=== PATIENT | male | born 1945 | race Caucasian/White ===

== ENCOUNTER 2016-08-08 07:47 | Outpatient (CLI) | payer OTHER ==
[~2016-08-08 07:47] MED LIST: ASPIRIN ADULT L81 M1 PO; FISH OIL1000 M1; FLUOXETINE HCL40 MG PO; HYDROCHLOROTHIA25 MG PO; LISINOPRIL10 MG PO; LOVASTATIN40 MG PO; METFORMIN HCL1000 MG PO; MORPHINE SULFAT30 M4 PO; MULTIPLE VITAMIN PO; PERCOCET1 TA4 PO; TOPROL XL50 MG PO; ZOLPIDEM TARTRA10 MG PO
--- NOTE | 2016-08-08 08:52 | DIAGNOSTIC IMAGING REPORT ---
PROCEDURE: CT THORAX WITH CONTRAST INDICATION: LUNG CANCER, follow-up TECHNIQUE: 125 ml of Isovue 300 was injected intravenously and axial images were obtained of the chest with coronal and sagittal reformations. COMPARISON: CT chest 07/01/2016 and 05/03/2016 FINDINGS: Mild progression of right apical opacity which appears to be primarily due to increasing necrosis. Solid component has continued to decrease in size and measures 4.2 x 3.5 cm (previously 4.2 x 4.0 cm). Pleural scarring. Mild scarring of the right lung base. Left lung emphysema. No adenopathy or effusion. Mild atherosclerosis of the thoracic aorta. CABG. Normal heart size. No pericardial effusion. Hepatic steatosis. Cholecystectomy. Small hiatal hernia. Stable right parapelvic cyst. No suspicious osseous lesions. IMPRESSION: 1. Increasing right upper lobe opacity which appears to be primarily due to increasing necrosis. Solid right apical component has decreased in size and measures 4.2 x 3.5 cm (previously 4.2 x 4 cm).
== END 2016-08-08 23:00 ==
LOC: CT SRH 07:47 → LAB SRH 07:47 → CT SRH 09:00
DX: C34.90 Malignant neoplasm of unspecified part of unspecified bronchus or lung (principal)
CPT/HCPCS: 90074; 90100; 91643; 95059

== ENCOUNTER 2016-09-29 10:10 | Outpatient (CLI) | payer OTHER ==
--- NOTE | 2016-09-29 12:17 | DIAGNOSTIC IMAGING REPORT ---
PROCEDURE: CT THORAX ABD PELVIS W/CONT INDICATION: LUNG CA TECHNIQUE: 125 ml of Isovue 300 injected intravenously and axial images were obtained of the entire thorax, abdomen, and pelvis with sagittal and coronal reformations. COMPARISON: Most recent exam from 08/08/2016. FINDINGS: THORAX: Left subclavian Mediport in good position. Post CABG changes in the anterior mediastinum and sternum. There has been interval decrease in the solid component to the posterior medial right upper lobe lung mass with now a small amount of central aeration of this portion of the lung and decreased amount of adjacent necrosis. There is an interval increase in fissural thickening along the posterior aspect of the right major fissure, but a fairly stable amount of perihilar soft tissue. Right hilar lymph nodes have become slightly more prominent. Stable small precarinal and subcarinal lymph nodes are stable in size and extent. There has been interval development of a small right pleural effusion. Fibrotic changes throughout the right lung and moderately severe emphysematous changes throughout the left. No new mass. No new adenopathy in the supraclavicular or axillary regions. Great vessels and heart, stable appearance with heavy coronary artery atherosclerosis. ABDOMEN: Surgically absent gallbladder. 4.3 cm lower pole right parapelvic cyst. 11 mm nonobstructing right lower pole intrarenal calcification. Tiny cortical cystic structures seen elsewhere in each kidney. Normal liver, adrenal glands, pancreas, and spleen. Normal caliber retroperitoneal vessels with moderate aortic atherosclerosis distally. No retroperitoneal adenopathy. The stomach, bowel loops, and mesentery are normal.. PELVIS: Surgically absent prostate gland and seminal vesicles. Indirect left inguinal hernia containing fat and a small knuckle of unobstructed sigmoid colon. Appendix not visible, likely surgically absent. Pelvic bowel loops, distal colon, and rectum appear normal. Distended urinary bladder. No free pelvic fluid. No pelvic adenopathy. Osseous structures demonstrate a dynamic hip screw in the right hip mild degenerative facet endplate changes in the spine. No suspicious osseous lesions.. IMPRESSION: 1. Slight interval decrease in solid component of right upper lobe lung mass. 2. Slight increased prominence of right hilar lymph nodes, but stable appearing mediastinal lymph nodes. 3. Interval development of small right pleural effusion and progressive thickening of the right major fissure. 4. Nonobstructing right lower pole intrarenal calcification measuring 11 mm. 5. Post cholecystectomy and prostatectomy. 6. No evidence of metastatic disease in the abdomen or pelvis. 7. Indirect left inguinal hernia containing fat and sigmoid colon. All CT scans at this facility use dose modulation, iterative reconstruction, and/or weight-based dosing when appropriate to reduce radiation dose to as low as reasonably achievable.
== END 2016-09-29 23:00 ==
LOC: CT SRH 10:10
DX: C34.90 Malignant neoplasm of unspecified part of unspecified bronchus or lung (principal); J90 Pleural effusion, not elsewhere classified; K40.90 Unilateral inguinal hernia, without obstruction or gangrene, not specified as recurrent; Z90.49 Acquired absence of other specified parts of digestive tract; Z85.46 Personal history of malignant neoplasm of prostate

== ENCOUNTER 2016-11-07 10:52 | Outpatient (CLI) | payer OTHER | END 2016-11-07 23:00 | LOC: LAB SRH 10:52 | DX: C34.90 Malignant neoplasm of unspecified part of unspecified bronchus or lung (principal) | CPT/HCPCS: 83498; 91162; 91163 ==

== ENCOUNTER 2016-11-08 17:17 | Inpatient (IN) | payer OTHER ==
[~2016-11-08] VITALS: Ht 180.3 cm; Wt 90.6 kg
--- NOTE | 2016-11-08 18:06 | DIAGNOSTIC IMAGING REPORT ---
PROCEDURE: XR CHEST 2 VIEW INDICATION: SHORTNESS OF BREATH TECHNIQUE: PA and lateral view. COMPARISON: CT chest 09/29/2016 and Chest x-ray 05/19/2016. FINDINGS: Poor inspiration with diffuse increased interstitial markings. New left basilar alveolar infiltrate. Stable right apical opacity. Median sternotomy and CABG. Heart size is normal. Pulmonary vascularity is within normal limits. Left subclavian Port-A-Cath. No suspicious osseous lesions. \ IMPRESSION: 1. New moderate left basilar alveolar infiltrate suggestive of pneumonia 2. Poor inspiration with pulmonary fibrosis 3. Stable right apical pleural thickening 4. CABG 5. Left subclavian Port-A-Cath
--- NOTE | 2016-11-08 18:26 | ED ORDER SUMMARY ---
..... Patient: RILEY CAMERON OrderSheet [facility] VisitID: [id number] [address] [place] [address] 71y, M Registration Date/Time: 11/08/2016 ORDER SHEET Weight: 104.3 kg (stated) Allergies: No Known Drug Allergy GENERAL ORDERS: Chest [facility]V [facility] (Ack 17:49 LNations ER Tech1) (18:23 LWhalen R.N.) [employer] (Continuous) (:11/08/2016 [facility] (17:29 LWhalen R.N.) UA-Culture if indicated Urgent (:11/08/2016 [facility] (Ack 17:49 LNations ER Tech1) (18:54 LWhalen R.N.) Cardiac Panel Stat (:[facility] (Ack 17:49 LNations ER Tech1) (18:23 LWhalen R.N.) BNP Urgent (:11/08/2016 PH[facility] DO) (Ack 17:49 LNations ER Tech1) (18:23 LWhalen R.N.) D-Dimer Urgent (:11/08/2016 [facility] DO) (Ack 17:49 LNations ER Tech1) (18:23 LWhalen R.N.) Amylase Urgent (:11/08/2016 [facility] DO) (Ack 17:49 LNations ER Tech1) (18:23 LWhalen R.N.) PT with INR Urgent (:11/08/2016 [facility] DO) (Ack 17:49 LNations ER Tech1) (18:23 LWhalen R.N.) TSH Urgent (:11/08/2016 [facility] DO) (Ack 17:49 LNations ER Tech1) (18:23 LWhalen R.N.) Lipase Urgent (:11/08/2016 [facility] DO) (Ack 17:49 LNations ER Tech1) (18:23 LWhalen R.N.) Oxygen (2 L/min) (NC) (17:24 11/08/2016 [facility]) (17:29 LWhalen R.N.) Pulse oximeter (17:24 11/08/2016 [facility]) (17:29 LWhalen R.N.) EKG - ER Stat (17:24 11/08/2016 [facility] DO) (17:29 LWhalen R.N.) Vitals (17:24 11/08/2016 [facility] DO) (17:29 LWhalen R.N.) Blood Culture (No) (N/A) Urgent (18:17 11/08/2016 [facility]) (Ack 18:23 LNations ER Tech1) (18:54 LWhalen R.N.) Call (Place call to): (Dr Winn) (18:57 11/08/2016 [facility]) (Ack 18:59 LNations ER Tech1) (19:07 LNations ER Tech1) MEDICATION ORDERS: DuoNeb Neb Tx 1 unit dose (NOW) (17:37 11/08/2016 [facility]) (17:56 KEpting) Azithromycin PO 500 mg (NOW) (18:20 11/08/2016 [facility]) (18:52 LWhalen R.N.) Albuterol Neb Tx 1 unit dose (HHN) (19:15 11/08/2016 [facility]) (19:20 ASingh) IV FLUIDS: IV NS : initial bolus 500 mL (1000 mL/hr), then 250 mL/hr for X2 (NOW) (17:24 11/08/2016 [facility]) (18:54 LWhalen R.N.) Ceftriaxone IV 2 gm/50mL (NOW) (18:20 11/08/2016 [facility]) (18:54 LWhalen R.N.) ORDER SHEET NOTES: [Electronically signed by Griffin Davidson R.N. (20:20 11/08/2016)] [Electronically signed by Rancho Ramírez DO (22:52 11/08/2016)] [Electronically locked/signed by Griffin Davidson R.N. (20:20 11/08/2016)]
--- NOTE | 2016-11-08 18:26 | ED NURSING NOTES ---
Clinical Report - [facility] [address] [place] [address] 11/08/2016 17:17 Patient: RILEY CAMERON SR TRIAGE Triage time 17:Nov 08 2016. Acuity: LEVEL 3. Chief Complaint: SHORTNESS OF BREATH. MALIK COMA SCORE: Malik Coma Scale: 15- eyes open spontaneously (4); best verbal response- oriented x 4 (5); best motor response- obeys commands (6). --17:26 Barbi Russ R.N. 17:19 11/08/16. BP: 98/41. HR: 114. RR: 20. O2 saturation: 93%. Temp: 98.8 F. Pain level now 0/10. --17:26 Barbi Russ R.N. Weight: 104.3 kg stated. Height/Length: 71 inches Per Patient. BMI: 32.1. --17:24 Barbi Russ R.N. Medications ASA Oral. Cinnamon Oral. Fish Oil Oral. FLUoxetine HCl Oral 20 mg, daily. Gabapentin Oral. Garlic Oral. INHALER . Iron Oral. Lisinopril Oral 10 mg, daily. Hurricane Citrate Oral 300 mg, daily. Lovastatin Oral (Tablet 40 mg), daily. MetFORMIN HCl Oral (Tablet 1000 mg), 2x a day. Methadose Oral. TraZODone HCl Oral. --17:22 Barbi Russ R.N. Chemo. --17:23 Barbi Russ R.N. Furosemide Oral. --17:26 Barbi Russ R.N. Pramipexole Dihydrochloride Oral. --17:26 Barbi Russ R.N. Metoprolol Tartrate Oral. --17:27 Barbi Russ R.N. Allergies No Known Drug Allergy. --17:22 Barbi Russ R.N. History Arrived by EMS, and from home. Historian: patient. This started just prior to arrival. ( Has lung cancer and feels SOB has O2 at home but felt like he couldn't take a deep breath. Is currently on chemo.). He has had a cough and wheezing. No fever, chills, chest pain or back pain. PAST MEDICAL HX: Diabetes mellitus. Hypertension. Chronic obstructive pulmonary disease. No history of asthma. Immunizations: up-to-date. SOCIAL HX: Former smoker, end date 2004. No alcohol use or drug use. SELF HARM ASSESSMENT: A self harm assessment was performed. The patient answered "yes" to the question "Have you recently felt down, depressed, or hopeless?" and "no" to the question "Do you have thoughts of harming or killing yourself?". FALL RISK ASSESSMENT: Fall risk assessment completed. No fall risk identified. NUTRITIONAL RISK ASSESSMENT: The nutritional risk assessment revealed no deficiencies. FUNCTIONAL ASSESSMENT: Functional assessment: no impairments noted. LEARNING NEEDS ASSESSMENT: The learning needs assessment revealed no barriers. ABUSE ASSESSMENT: Abuse assessment: (yes) The patient was asked "Do you feel safe in your home?". SKIN INTEGRITY ASSESSMENT: Skin integrity risk assessment completed. No skin integrity risk identified. --17:26 Barbi Russ R.N. PROBLEMS: Angina. Changed Mental Status. Pneumonia. Prostate Cancer. Lung Cancer. Coronary Artery Disease. Congestive Heart Failure. Cancer. COPD - Chronic Obstructive Pulmonary Disease. Heart Disease. --17:23 Barbi Russ R.N. ADDITIONAL SURGERIES: Amputation Above Knee. Cholecystectomy. Coronary Artery Bypass Graft. Prostatectomy. Shoulder Surgery. Tonsillectomy. --17:23 Barbi Russ R.N. Interventions ID band on patient. --17:26 Barbi Russ R.N. PHYSICAL ASSESSMENT To room via stretcher. GENERAL / NEURO / PSYCH: Alert. Oriented X 4. Appears anxious. HEENT: Mucous membranes are pink. RESPIRATORY: Moderate respiratory distress. Accessory muscle use. Wheezing present. CVS: Normal sinus rhythm noted. ( missing right leg). Capillary refill less than 2 seconds. GI / : Bowel sounds within normal limits. ( This am had BM diarrhea on clear diet). SKIN: Skin is warm and dry. Normal skin turgor. --17:28 Barbi Russ R.N. ( patient sitting upright in bed, receiving breathing treatment). GENERAL / NEURO / PSYCH: Alert. Oriented X 4. RESPIRATORY: Mild respiratory distress. The patient can speak in full sentences. Decreased breath sounds in the right lung base posteriorly, mid-lung posteriorly and upper lung posteriorly. CVS: Cardiac rhythm: sinus tachycardia. No abnormal heart sounds. ( on manager cardiac cath). Capillary refill less than 2 seconds. SKIN: Skin is warm and dry. --19:27 Griffin Davidson R.N. NURSING PROGRESS NOTES The initial plan of care for this patient includes an assessment with efforts to address patient positioning, appropriate ambient lighting and comfortable environmental temperature; impairment of the respiratory system. property assessment monitor, pulse oximeter and NIBP monitor placed on patient. Patient gowned. Head of bed elevated 75 degrees. Reassurance given. Call light placed in reach. Side rails up x 1. Bed placed in lowest position. Brakes of bed on. --17:29 Barbi Russ R.N. EKG time: (1735). EKG was ordered, performed by a tech and shown to the ED physician. --17:39 Rancho Castro ER Tech1 17:55 11/08/2016 Duoneb (Ipratropium-Albuterol) Neb TX 1 unit dose given. --17:56 Ondina Gerard ( H/P forms given to family). --18:43 Vicki Hooks ER Tech1 18:29 11/08/2016 Site #1 accessed indwelling central line in the left using a 20g needle following sterile technique; 1 attempt. Good blood return noted. Site prepped with alcohol and chlorhexidine. Blood drawn: rainbow set and cultures x1. Labeled in the presence of the patient and sent to the lab. Flushed with 20 mL saline. --18:54 Barbi Russ R.N. 18:52 11/08/2016 Azithromycin PO Capsules 500 mg given. Allergies verified and confirmed 5 rights. --18:52 Barbi Russ R.N. 18:54 11/08/2016 Started 2 gm of Ceftriaxone IVPB in bag #1 50 mL; at 150 mL/hr over 1 hour(s) via site #1 via IV pump. Allergies verified and confirmed 5 rights. IV patency established. IV site checked: no pain, redness, or swelling. IV flushed thoroughly pre- and post-medication administration. --18:54 Barbi Russ R.N. 18:54 11/08/2016 Started bag #1 1000 mL IV Fluids IV NS (Saline); at 500 mL/hr over 1 hour(s) via site #1 via dial-a-flow. Allergies verified and confirmed 5 rights. IV patency established. IV site checked: no pain, redness, or swelling. IV flushed thoroughly pre- and post-medication administration. --18:54 Barbi Russ R.N. 19:00 11/08/16. BP: 91/54. HR: 118. RR: 20. O2 saturation: 97% on nasal cannula at 2 liters/minute. 18:45 11/08/16. BP: 99/72. HR: 100. RR: 18. O2 saturation: 97% on nasal cannula. 18:30 11/08/16. BP: 96/66. HR: 104. RR: 18. O2 saturation: 96% on nasal cannula at 2 liters/minute. 17:30 11/08/16. BP: 97/47. HR: 100. RR: 18. O2 saturation: 94% on nasal cannula at 2 liters/minute. --19:12 Barbi Russ R.N. ( report given to Gerald MEDINA). --19:12 Barbi Russ R.N. ( RT with patient currently). --19:24 Griffin Davidson R.N. ( Report received from Barbi Isaac RN at 1908). --19:24 Griffin Davidson R.N. ( Dr. Winn speaking with patient. Report called to CAROL Ross (Receiving nurse for inpatient room 201).). --20:00 Griffin Davidson R.N. 20:02 11/08/16. BP: 85/51. HR: 98. RR: 19. O2 saturation: 97% on nasal cannula at 2 liters/minute. --20:05 Griffin Davidson R.N. 20:06 11/08/2016 IV Fluids IV NS Continued: upon admission at the rate of 250 mL/hr. 220 mL remaining. IV patency established. IV site checked: no pain, redness, or swelling. IV flushed thoroughly. --20:06 Griffin Davidson R.N. 20:12 11/08/16. BP: 109/64. --20:12 Griffin Davidson R.N. DISPOSITION / DISCHARGE Departure time: 2014. Condition at departure: stable. Admitted to Acute Care (room 201). Transported via stretcher by transport team. Report was given to a nurse. Report included patient's care, treatment, medications, reviewed medication reconcilliation, and condition (including any recent changes or anticipated changes). All questions were answered. Report was acknowledged. Patient's personal items; items were transported with the patient. --20:19 Griffin Davidson R.N. 20:12 11/08/16. BP: 109/64. 20:02 11/08/16. BP: 85/51. HR: 98. RR: 19. O2 saturation: 97% on nasal cannula at 2 liters/minute. --20:19 Griffin Davidson R.N. Locked/Released at 11/08/2016 20:20 by Griffin Davidson R.N.
--- NOTE | 2016-11-08 18:26 | ED ORDER SUMMARY ---
..... Patient: RILEY CAMERON OrderSheet [facility] VisitID: [id number] [address] [place] [address] 71y, M Registration Date/Time: 11/08/2016 ORDER SHEET Weight: 104.3 kg (stated) Allergies: No Known Drug Allergy GENERAL ORDERS: [facility] 2V [facility] (Ack 17:49 LNations ER Tech1) (18:23 LWhalen R.N.) [employer] (Continuous) (:11/08/2016 [facility]) (17:29 LWhalen R.N.) UA-Culture if indicated Urgent (:11/08/2016 [facility] (Ack 17:49 LNations ER Tech1) (18:54 LWhalen R.N.) Cardiac Panel Stat [facility] (Ack 17:49 LNations ER Tech1) (18:23 LWhalen R.N.) BNP Urgent (:11/08/2016 [facility] DO) (Ack 17:49 LNations ER Tech1) (18:23 LWhalen R.N.) D-Dimer Urgent (:11/08/2016 [facility] DO) (Ack 17:49 LNations ER Tech1) (18:23 LWhalen R.N.) Amylase Urgent (:11/08/2016 [facility] DO) (Ack 17:49 LNations ER Tech1) (18:23 LWhalen R.N.) PT with INR Urgent (:11/08/2016 [facility] DO) (Ack 17:49 LNations ER Tech1) (18:23 LWhalen R.N.) TSH Urgent (:11/08/2016 [facility] DO) (Ack 17:49 LNations ER Tech1) (18:23 LWhalen R.N.) Lipase Urgent (:11/08/2016 [facility] DO) (Ack 17:49 LNations ER Tech1) (18:23 LWhalen R.N.) Oxygen (2 L/min) (NC) (17:24 11/08/2016 [facility]) (17:29 LWhalen R.N.) Pulse oximeter (17:24 11/08/2016 [facility]) (17:29 LWhalen R.N.) EKG - ER Stat (17:24 11/08/2016 [facility] DO) (17:29 LWhalen R.N.) Vitals (17:24 11/08/2016 [facility] DO) (17:29 LWhalen R.N.) Blood Culture (No) (N/A) Urgent (18:17 11/08/2016 [facility]) (Ack 18:23 LNations ER Tech1) (18:54 LWhalen R.N.) Call (Place call to): (Dr Winn) (18:57 11/08/2016 [facility]) (Ack 18:59 LNations ER Tech1) (19:07 LNations ER Tech1) MEDICATION ORDERS: DuoNeb Neb Tx 1 unit dose (NOW) (17:37 11/08/2016 [facility]) (17:56 KEpting) Azithromycin PO 500 mg (NOW) (18:20 11/08/2016 [facility]) (18:52 LWhalen R.N.) Albuterol Neb Tx 1 unit dose (HHN) (19:15 11/08/2016 [facility]) (19:20 ASingh) IV FLUIDS: IV NS : initial bolus 500 mL (1000 mL/hr), then 250 mL/hr for X2 (NOW) (17:24 11/08/2016 [facility]) (18:54 LWhalen R.N.) Ceftriaxone IV 2 gm/50mL (NOW) (18:20 11/08/2016 [facility]) (18:54 LWhalen R.N.) ORDER SHEET NOTES: [Electronically signed by Griffin Davidson R.N. (20:20 11/08/2016)] [Electronically signed by Rancoh Ramírez DO (22:52 11/08/2016)] [Electronically locked/signed by Griffin Davidson R.N. (20:20 11/08/2016)]
--- NOTE | 2016-11-08 18:26 | ED CLINICAL REPORT ---
Clinical Report - Physicians/Mid Levels [facility] [address] [place] [address] 11/08/2016 17:17 Patient: RILEY CAMERON SR Time Seen: 17:23. Arrived- By ambulance. Historian- patient, EMS personnel and family. HISTORY OF PRESENT ILLNESS Chief Complaint: DYSPNEA. This started today this is a longstanding problem, exacerbated today and is still present. It was gradual in onset and has been waxing/waning. The dyspnea is described as moderate and is worsened by exertion, is improved by rest and is improved with oxygen. The patient has had a cough . No blood tinged sputum or frankly bloody sputum, wheezing, left foot swelling, anxiety and dizziness. No sputum production or paroxysmal nocturnal dyspnea. The patient has had severe dyspnea on exertion. Initially, it was precipitated by mild exertion. Now, it is precipitated by mild exertion (for). He has had calf pain (states he has foot pain extending to his right calf - AKA right lower ext). (Has lung cancer and feels SOB has O2 at home but felt like he couldn't take a deep breath. Is currently on chemo). Similar symptoms previously: Recent medical care: The patient was seen recently by a health care provider. REVIEW OF SYSTEMS The patient has had muscle aches (left foot to calf). No eye irritation, sore throat, nasal discharge, sinus drainage or nausea. No vomiting, abdominal pain, diarrhea, black stools or bloody stools. No headache, fainting episodes, excessive urination or skin rash. The patient has had joint pain. He has had moderate dizziness described as a light-headedness. All systems otherwise negative, except as recorded above. PAST HISTORY PCP: Dr Cooper Oncology: Dr Newman Heart disease. Angina. Prostate Cancer. Lung Cancer. Coronary Artery Disease. Congestive Heart Failure. Cancer. COPD - Chronic Obstructive Pulmonary Disease. 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 Cholecystectomy. Coronary Artery Bypass Graft. Prostatectomy. Shoulder Surgery. Tonsillectomy. SOCIAL HISTORY Smoker- current status unknown. Is a local resident. ADDITIONAL NOTES The nursing notes have been reviewed. PHYSICAL EXAM Vital Signs: 11/08/2016 17:19 BP: 98/41. HR: 114. RR: 20. O2 saturation: 93%. Temp: 98.8 F. Appearance: Alert. Patient in mild distress. Eyes: Pale conjunctivae. Eyes normal inspection. No scleral icterus. ENT: Dry mucous membranes present. Uvula midline. No pharyngeal erythema. Neck: Normal inspection. No jugular venous distention. Neck supple. CVS: Tachycardia. Pulses normal. Respiratory: Prolonged expirations. Decreased air movement in the right lung base. Expiratory mild bilateral wheezes present. Mild rales in the right lung; mild rales in the left lung base and mid-lung. No retractions. Abdomen: Soft and nontender. Back: Normal inspection. Skin: Skin warm and dry. No rash. Extremities: Extremities exhibit normal ROM. (right AKA). Neuro: Oriented X 3. No motor deficit. LABS, X-RAYS, AND EKG EKG: EKG time: (17:35). Regular tachycardia (ventricular rate 115). Sinus tachycardia. Ectopic beats. Premature ventricular contractions. Non-specific ST segment / T wave abnormalities. The study has been interpreted contemporaneously by me. The EKG appears to be a good tracing. Rhythm Strip #1: Sinus tachycardia. Regular rhythm. Narrow QRS complexes. Occasional premature ventricular contractions. Non-specific ST segment / T-wave abnormalities. Chest X-ray: (IMPRESSION: 1. New moderate left basilar alveolar infiltrate suggestive of pneumonia 2. Poor inspiration with pulmonary fibrosis 3. Stable right apical pleural thickening 4. CABG 5. Left subclavian Port-A-Cath). Views: PA and lateral. Technique: good. The X-rays were interpreted contemporaneously by me. The X-rays were discussed with the radiologist (via PACS report). A comparison with prior films (CT chest 09/29/2016 and Chest x-ray 05/19/2016.). Laboratory Tests: UA-Culture if indicated: (ALYSE: 11/08/2016 21:38) ( MsgRcvd 11/08/2016 21:57) Final results Test Result Flag Units (Reference) URINE COLOR YELLOW URINE APPEARANCE CLEAR URINE GLUCOSE NEGATIVE (NEGATIVE) URINE BILIRUBIN NEGATIVE (NEGATIVE) URINE KETONE NEGATIVE (NEGATIVE) URINE SPECIFIC GRAVITY <= 1.005 L (1.010-1.030) URINE PH 7.5 (5.0-8.0) URINE PROTEIN NEGATIVE (NEGATIVE) URINE UROBILINOGEN 0.2 EU/dL (0.2-1.0) URINE NITRITE NEGATIVE (NEGATIVE) URINE BLOOD TRACE-INTACT (NEGATIVE) URINE LEUK ESTERASE NEGATIVE (NEGATIVE) URINE RBC 0-1 rbc/hpf (0-1) URINE WBC RARE wbc/hpf (0-1) URINE EPITHELIAL CELLS RARE EPI/hpf (0-5) URINE BACTERIA NONE SEEN (NONE SEEN) URINE COMMENT CULT NOT INDICATED URINE CULTURES ARE SET-UP BASED ON THE FOLLOWING CRITERIA:POSITIVE NITRITEPOSITIVE LEUKOCYTE ESTERASEGREATER THAN 10 WHITE BLOOD CELLSMODERATE (2+) OR GREATER BACTERIA CBC w Diff: (ALYSE: 11/08/2016 18:20) ( MsgRcvd 11/08/2016 21:18) Final results Test Result Flag Units (Reference) WHITE BLOOD COUNT 2.5 L K/uL (4.5-11.5) RED BLOOD COUNT 3.38 L M/uL (4.50-5.90) HEMOGLOBIN 9.3 L gm/dL (13.5-17.5) HEMATOCRIT 28.4 L % (41.0-53.0) MEAN CELL VOLUME 84 fL (80-100) MEAN CORPUSCULAR HGB 27 pg (26-34) MEAN CORPUSCULAR HGB CONC 33 g/dL (31-37) RED CELL DISTRIBUTION WIDTH 19.6 H % (11.6-14.8) PLATELET COUNT 144 L K/uL (150-400) NEUTROPHIL % 53.0 % (50-75) LYMPH % 24.8 L % (25-40) MONO % 19.2 H % (3-14) EOSINOPHIL % 2.8 % (0-4) BASOPHIL % 0.2 % (0-2) POLY % 50 % (50-75) BAND % 2 % (0-8) LYMPH 32 % (25-40) MONO 12 % (3-14) EOSINOPHIL % 2 % (0-4) BASOPHIL % 1 % (0-2) METAMYELOCYTE % 0 % (0-1) MYELOCYTE 0 % (0-1) OTHER CELL TYPE 1 HYPOCHROMIA 1+ ANISOCYTOSIS 1+ OCT COMMENT ONE VARIANT LYMPH PT with INR: (ALYSE: 11/08/2016 18:20) ( Mscvd 11/08/2016 18:42) Final results Test Result Flag Units (Reference) INR 1.0 (0.8-1.2) Low Intensity Therapy: INR 1.5-2.0 PT range 18.5-23.1Mod.Intensity Therapy: INR 2.0-3.0 PT range 23.1-31.5High Intensity Therapy: INR 2.5-3.5 PT range 27.4-35.5High Intensity Therapy 2: INR 3.0-4.0 PT range 31.5-39.3 D-DIMER QUANTITATIVE 1.27 H ug/mLFEU (0.27-0.52) The primary value of this quantitative assay relates toits negative predictive value (i.e. exclusion) of pulmonaryembolism/deep vein thrombosis/DIC.Elevated levels of d-dimer may also occur with:, age, cancer, inflammation, liver disease,post-op, infection, hematoma, coronary disease, peripheralarteriopathy, bleeding disorders and thrombolytic treatment.Results should be correlated with other clinical andradiological data.Testing Methodology: Latex Immunoassay [id number]: (ALYSE: 11/08/2016 18:20) ( MsgRcvd 11/08/2016 22:49) Final results Test Result Flag Units (Reference) PROCALCITONIN <0.5 ng/mL (0-0.5) PCT Concentration: Interpretation : Risk/option for action PCT <=0.5 ng/mL : Systemic : Low risk forinfection(sepsis): progression to severeis not likely. : systemic infection.Local bacterial : CAUTION-PCT levelsinfection is : below 0.5 ng/mL do notpossible. : exclude an infection,because localizedinfections (withoutsystemic signs) may beassociated with suchlow levels. If PCT ismeasured very earlyafter a bacterialchallenge (usually <6hours), these valuesmay still be low. Inthis case PCT shouldbe re-assessed 6-24hours later. PCT >0.5 and : Systemic infection: Moderate risk for<= 2 ng/mL : (sepsis) is : progression to severepossible, but : systemic infection.other conditions : The patient should beare known to : closely monitoredelevate PCT. : both clinically andby re-assessing PCTwithin 6-24 hours. PCT > 2 ng/mL : Systemic infection: High risk for(sepsis) is likely: progression to severeunless other : systemic infection.causes are known. : PCT >= 10 ng/mL : Important systemic: High likelihood ofinflammatory : severe sepsis orresponse, almost : septic shock.exclusively due to:severe bacterial :sepsis or septic :shock. : BNP: (ALYSE: 11/08/2016 18:20) ( [facility] Final results Test Result Flag Units (Reference) B-TYPE NATRIURETIC PEPTIDE 51.3 pg/ml (5-100) Lipase: (ALYSE: 11/08/2016 18:20) ( MsgRcvd 11/08/2016 19:16) Final results Test Result Flag Units (Reference) LIPASE 167 U/L (73-393) AMYLASE 42 U/L (25-115) THYROID STIMULATING HORMONE 1.904 uIU/mL (0.30-3.74) CHEM 13 PANEL: (ALYSE: 11/08/2016 18:20) ( MsgRcvd 11/08/2016 18:53) Final results Test Result Flag Units (Reference) GLUCOSE 120 H mg/dL (70-110) BUN 17 mg/dL (7-18) CREATININE 0.6 mg/dL (0.6-1.3) Estimated GFR >60 mL/min Estimated GFR- >60 mL/min Note: Persistent reduction over 3 months in eGFR<60 mL/min/1.73 m2 defines CKD. Patients with eGFR values>=60 mL/min/1.73 m2 may also have CKD if evidence ofpersistent proteinuria. Additional information may be foundat [email or web address]. SODIUM 136 mmol/L (136-145) POTASSIUM 4.6 mmol/L (3.5-5.1) CHLORIDE 97 L mmol/L (98-107) CARBON DIOXIDE 33 H mmol/L (21-32) CALCIUM 8.9 mg/dL (8.5-10.1) TOTAL PROTEIN 6.6 g/dL (6.4-8.2) ALBUMIN 2.5 L g/dL (3.3-5.0) BILIRUBIN, TOTAL 0.4 mg/dL (0.0-1.0) ALKALINE PHOSPHATASE 76 U/L (46-116) AST (SGOT) 27 U/L (15-37) ALT (SGPT) 25 U/L (12-78) MAGNESIUM 1.9 mg/dL (1.8-2.4) CPK 27 U/L (24-260) TROPONIN I <0.05 L ng/mL (0.00-1.5) TROPONIN REFERENCE RANGE:<0.1 NEGATIVE0.1-1.5 INDETERMINANT>1.5 POSITIVE . Microbiology: Blood culture x2 ordered. Pulse Oximetry: 11/08/2016 17:19 O2 saturation: 93%. (FIO2-2 liter/min nasal cannula). Interpretation: hypoxemia. PROGRESS AND PROCEDURES Course of Care: 11/08/2016 20:12 BP: 109/64. 11/08/2016 19:05 BP: 91/54. HR: 110. RR: 19. O2 saturation: 97%. [place] pain scale: 10. 11/08/2016 18:45 BP: 99/72. HR: 100. RR: 18. O2 saturation: 97%. Albuterol nebulizer treatment (1 unit dose) given. Azithromycin 500mg IVPB given. Ceftriaxone 2 gm IVP given. DuoNeb nebulizer treatment (1 unit dose) by respiratory therapist. Patient is stable. Physical exam findings are improved. Symptoms better. Discussed case with hospitalist, (Pa call returned 19:00 call returned 19:12 - accepts pt). Reviewed test results. Agreed upon treatment plan. Health care provider will see patient in ED. Refers case to other health care provider. Discussed case with patient's primary care provider, (Kenneth call placed 19:03 call returned 19:04). Reviewed test results. Agreed upon treatment plan. Health care provider will see patient in hospital. Refers case to other health care provider. Patient counseled in person regarding the patient's critical condition, test results, diagnosis and need for additional testing. Old ED records reviewed. Transition orders written. Disposition: Admitted to Acute Care. Condition: guarded and improved. CLINICAL IMPRESSION Mild hypotension. Advanced lung cancer. Bacterial bronchopneumonia with hypoxemia. Vital signs recorded and reviewed; empiric antibiotics given in the ED. Elevated d-dimer consistent with acute pneumonia, age and chronic malignancy Leukopenia - likely secondary to chemotherapy Anemia - likely secondary to chemotherapy. (Electronically signed by Rancho Ramírez DO 11/08/2016 22:52)
--- NOTE | 2016-11-08 19:47 | Progress Note ---
Subjective General Admission History and Physical Examination Patient Name: Sterling Marie Admission Date: November 08, 2016 Primary Care Provider: Sterling Cooper M.D. Attending Physician: Sterling Cooper M.D. Admitting Physician: Perry Winn M.D. Code Status: FULL CODE Room: 201 Status: Inpatient, ACU SUBJECTIVE Historian: Patient and prior records Reliability: Fair Chief Complaint: Shortness of breath History of Present Illness: The patient is a 71-year-old white male with a significant past medical history of lung CVA, coronary disease, CHF, COPD, prostate cancer, who presented to [facility] emergency department on the day of admission secondary to complaints of shortness of breath. [facility] ER evaluation was consistent with left basilar pneumonia and exacerbation of COPD. Secondary to the above, the patient was admitted by Perry Winn M.D. for further evaluation and treatment. The history of present illness began on the day of admission when the patient had increasing shortness of breath with coughing episodes. The cough is productive of whitish sputum. There is no associated fever or chills. The patient denied chest pain. Secondary to increasing shortness of breath and recurrent paroxysmal coughing episodes the patient presented to [facility] emergency department for further evaluation and treatment. [facility] ER evaluation showed the patient to have findings of left lower lobe infiltrate suspicious for left lower lobe pneumonia. Secondary to the above the patient was admitted with a diagnosis of left lower lobe pneumonia, exacerbation of COPD for further evaluation and treatment. PAST MEDICAL HISTORY Illnesses: 1. COPD 2. CHF 3. Coronary artery disease status post CABG x 4 4. Prostate CA status post prostatectomy 5. Lung cancer 6. Hypertension 7. Depression Allergies: 1. No Known Drug Allergies Medications: 1. Aspirin 81 mg by mouth daily 2. Fluoxetine 20 mg 1 by mouth daily 3. Gabapentin 300 mg by mouth every afternoon 4. Lisinopril 10 mg by mouth daily 5. Metformin 1000 g by mouth twice a day 6. Methadone 5 mg by mouth when necessary pain 7. Lovastatin 40 mg by mouth daily 8. Edna citrate 300 mg by mouth daily 9. Symbicort 1 inhalation twice a day 10. Trazodone 50 mg by mouth daily at bedtime 11. Furosemide 20 mg by mouth every morning 12. Metoprolol 25 mg by mouth twice a day 13. Mirapex 0.25 mg by mouth daily at bedtime 14. Albuterol MDI 2 inhalations every 6 hours when necessary shortness of breath 15. Symbicort 1 inhalation twice a day 16. Percocet 5/325 one by mouth every 6 hours when necessary pain 16. Cymbalta 60 mg by mouth daily at bedtime Surgery: 1. Cholecystectomy 2. Prostatectomy 3. Coronary artery bypass graft 4 4. Shoulder surgery 5. Tonsillectomy 6. AKA right leg Injuries: 1. No significant Hospitalizations: 1. For above surgery and medical problems FAMILY HISTORY Parents: 1. Father, elba, , 88, COPD, pneumonia, cancer type unknown, 2. Mother, Pearl, living, 89, healthy Siblings: 1. Male, living, 50, heart disease, diabetes mellitus 2. Female, living, 60, health history unknown 3. Male, , 20, war injury Children: 1. None Other significant family history: None SOCIAL HISTORY 1. Marital Status: , 24 years 2. Presybeterian: Jainism 3. Education: High school and college education 4. 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 Occupational health exposures: None HABITS 1. Tobacco: 125 pack years-cigarettes, quit 2004 2. Drugs: None 3. Alcohol: None 4. Caffeine: Coffee 2-3 cups per day HEALTH SUPERVISION Item/Test 1. Vision screen: 2015 2. Cholesterol Profile: Unknown 3. PSA: 2005 4. AMARILYS: Unknown 5. FOBT: Unknown 6. Blood Glucose: 2016 7. Colonoscopy: Unknown 8. History and physical exam: Unknown 9. Audiogram: Unknown 10. Mammogram: Not applicable 11. Pap/pelvic exam: Not applicable IMMUNIZATIONS: 1. Pneumococcal: Unknown 2. Influenza: 2015 3. Tetanus: Unknown ADVANCED DIRECTIVES: 1. Living well: Yes 2. POLST: No 3. Code Status: FULL CODE 4. 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 Donor card: Yes REVIEW OF SYSTEMS Remarkable for those things stated in the history of present illness and past medical history. Seventeen point review of system completed with the following notable findings: General: Fatigue, weakness Eyes: Decreased visual acuity requiring corrective lenses Ears: Tinnitus Respiratory: Shortness of breath, cough, wheezing, asthma/COPD Cardiovascular: Shortness of breath with exertion, shortness of breath when lying flat Genitourinary: Incontinence poor urinary stream Gastrointestinal: Loss of appetite Musculoskeletal: Joint pain, backache Endocrine: Diabetes mellitus Psychological: Depression Physical Exam Vital Signs / I&Os Blood pressure: 98/41 mmHg Heart rate: 114/minute Respiratory rate: 20/minute Temperature: 98.8 Fahrenheit orally Pulse oximetry: 97% 2 L/m nasal cannula General Appearance Alert, Oriented X3, Cooperative, No acute distress HEENT Atraumatic, PERRLA, EOMI, Moist mucous membranes Lungs scattered rhonchi, no rales noted. Minimal expiratory wheezes Neck Supple, No JVD Cardiovascular Regular rate and rhythm, Normal S1 and S2, No murmurs, gallops, rubs Abdomen Normal bowel sounds, Soft, No tenderness Extremities No cyanosis, No clubbing, right AKA Neurological Cranial nerves intact, No lateralizing signs Psych/Mental Status Mental status normal, Mood normal LAB Results Laboratory Tests 11/08 11/08 11/08 1820 1820 1820 Chemistry Plasma Sodium (136 - 145 mmol/L) 136 Plasma Potassium (3.5 - 5.1 mmol/L) 4.6 Plasma Chloride (98 - 107 mmol/L) 97 CO2 (Enzymatic) (21 - 32 mmol/L) 33 BUN (7 - 18 mg/dL) 17 Creatinine (0.6 - 1.3 mg/dL) 0.6 Est GFR ( Amer) (mL/min) >60 Est GFR (Non-Af Amer) (mL/min) >60 Glucose (70 - 110 mg/dL) 120 Plasma Calcium (8.5 - 10.1 mg/dL) 8.9 Plasma Magnesium (1.8 - 2.4 mg/dL) 1.9 Total Bilirubin (0.0 - 1.0 mg/dL) 0.4 AST (15 - 37 U/L) 27 ALT (12 - 78 U/L) 25 Alkaline Phosphatase (46 - 116 U/L) 76 Creatine Kinase (24 - 260 U/L) 27 Troponin (0.00 - 1.5 ng/mL) <0.05 B-Natriuretic Peptide (5 - 100 pg/ml) 51.3 Total Protein (6.4 - 8.2 g/dL) 6.6 Albumin (3.3 - 5.0 g/dL) 2.5 Amylase (25 - 115 U/L) 42 Lipase (73 - 393 U/L) 167 TSH 3rd Generation (0.30 - 3.74 uIU/mL) 1.904 Coagulation INR (0.8 - 1.2) 1.0 D-Dimer, Quantitative (0.27 - 0.52 ug/mLFEU) 1.27 Hematology WBC (4.5 - 11.5 K/uL) 2.5 RBC (4.50 - 5.90 M/uL) 3.38 Hgb (13.5 - 17.5 gm/dL) 9.3 Hct (41.0 - 53.0 %) 28.4 MCV (80 - 100 fL) 84 MCH (26 - 34 pg) 27 RDW (11.6 - 14.8 %) 19.6 Neut % (Auto) (50 - 75 %) 53.0 Lymph % (Auto) (25 - 40 %) 24.8 [place] % (Auto) (3 - 14 %) 19.2 Eos % (Auto) (0 - 4 %) 2.8 Baso % (Auto) (0 - 2 %) 0.2 Plt Count, EDTA (150 - 400 K/uL) 144 PUBS MCHC (31 - 37 g/dL) 33 Microbiology Date/Time Procedure - Status Source Growth 11/09 1839 Blood Culture - RECD BLOOD 11/08 1829 Blood Culture - RECD BLOOD Imaging Chest X-Ray IMPRESSION: 1. New moderate left basilar alveolar infiltrate suggestive of pneumonia 2. Poor inspiration with pulmonary fibrosis 3. Stable right apical pleural thickening 4. CABG 5. Left subclavian Port-A-Cath Dictated by: ARIS KOCH MD D: SAMPSON;11/08/16 1806 Assessment and Plan Problem List 1. Pneumonia Status Acute Onset Date Unknown Plan -Patient presents with findings of left lower lobe infiltrate, possible pneumonia -Patient without fever, chills. Cough minimally productive of whitish sputum -No leukocytosis however patient receiving chemotherapy -Procalcitonin within normal limits -Rocephin/Zithromax -Consider change to oral medications in a.m. if stable with early discharge 2. Lung cancer Plan -Patient with history of lung cancer -Continue follow-up with Dr. Cooper/oncology 3. CHF (congestive heart failure) Status Chronic Onset Date Unknown Plan -Patient with history of CHF -Hold beta meche/EDE inhibitor secondary to hypotension -BNP low -No signs of CHF exacerbation -Low-salt diet -Placed back on beta meche/EDE inhibitor when appropriate -Monitor 4. Anemia Status Acute Onset Date Unknown Plan -Patient with findings of anemia/leukopenia -Check iron studies, B12, folate -Check stool Hemoccult -Monitor 5. Diabetes mellitus Status Chronic Onset Date Unknown Plan -Patient with history of diabetes mellitus -Metformin 1000 mg by mouth twice a day -Insulin sliding scale -Monitor closely secondary to addition of IV corticosteroids -Check hemoglobin A1c in a.m. 6. COPD (chronic obstructive pulmonary disease) Status Chronic Onset Date Unknown Plan -Patient with findings of exacerbation of COPD -DuoNeb, albuterol, Advair, IV corticosteroids -Supplemental oxygen as necessary -Monitor Current status: Fair, unstable Anticipated discharge date: Anticipated discharge in 2-3 days Anticipated discharge placement: Home Patient care time: Time spent in chart review, patient interview, physical exam, CPOE, and care documentation: 70 minutes Visit to patient today: 1 Complexity of care: High Initial patient evaluation: Emergency department DVT prophylaxis: Lovenox 40 mg subcutaneous daily Advance care plan: Advance care plan documented. CODE STATUS-FULL CODE. Advance clear plan documentation completed. E&M Codes Admission: Inpt-High/91045
[2016-11-08 20:32] VITALS: BP 109/54
--- NOTE | 2016-11-08 21:50 | Progress Note ---
Subjective General ADVANCED CARE PLAN History of Present Illness The patient is a 71-year-old white male with a significant past medical history of lung CVA, coronary disease, CHF, COPD, prostate cancer, who presented to [facility] emergency department on the day of admission secondary to complaints of shortness of breath. [facility] ER evaluation was consistent with left basilar pneumonia and exacerbation of COPD. Secondary to the above, the patient was admitted by Perry Winn M.D. for further evaluation and treatment. For other history present illness, past medical history, family history, social history, review of systems, and admission physical examination please see the patient's history and physical examination and ER visit note in the patient's medical record. A discussion was undertaken with the patient regarding previous advance care arrangements/decisions. The following advanced directives were noted by the patient and discussed with me at the time of admission. ADVANCED DIRECTIVES: 1. Living well: Yes 2. POLST: No 3. Code Status: FULL CODE 4. Durable Power Hiv Cts Specialist Health care: Yes 5. Donor card: Yes The patient has expressed interest in not pursuing full resuscitative efforts at the time of cardiopulmonary arrest. Patient has been placed on a FULL CODE STATUS. The patient's wishes were documented in the chart and orders regarding the patient's wishes entered into the [employer] CPOE system. The "Advance Care Plan Document" was not distributed to patient to discuss with his family. Less than 30 minutes was spent in performing the above tasks and documentation of the patient's advanced care plan.
--- NOTE | 2016-11-08 21:50 | Progress Note ---
Subjective General ADVANCED CARE PLAN History of Present Illness The patient is a 71-year-old white male with a significant past medical history of lung CVA, coronary disease, CHF, COPD, prostate cancer, who presented to [facility] emergency department on the day of admission secondary to complaints of shortness of breath. [facility] ER evaluation was consistent with left basilar pneumonia and exacerbation of COPD. Secondary to the above, the patient was admitted by Perry Winn M.D. for further evaluation and treatment. For other history present illness, past medical history, family history, social history, review of systems, and admission physical examination please see the patient's history and physical examination and ER visit note in the patient's medical record. A discussion was undertaken with the patient regarding previous advance care arrangements/decisions. The following advanced directives were noted by the patient and discussed with me at the time of admission. ADVANCED DIRECTIVES: 1. Living well: Yes 2. POLST: No 3. Code Status: FULL CODE 4. 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 Donor card: Yes The patient has expressed interest in not pursuing full resuscitative efforts at the time of cardiopulmonary arrest. Patient has been placed on a FULL CODE STATUS. The patient's wishes were documented in the chart and orders regarding the patient's wishes entered into the [employer] CPOE system. The "Advance Care Plan Document" was not distributed to patient to discuss with his family. Less than 30 minutes was spent in performing the above tasks and documentation of the patient's advanced care plan.
[2016-11-08 22:25] VITALS: BP 111/55
--- NOTE | 2016-11-08 22:53 | ED DISCHARGE INSTRUCTIONS ---
Patient: RILEY CAMERON SR General Instructions [facility] VisitID: [id number] [address] [place] [address] 71y, M Registration Date/Time: 11/08/2016 Mild hypotension. Advanced lung cancer. Bacterial bronchopneumonia with hypoxemia. Vital signs recorded and reviewed; empiric antibiotics given in the ED. Elevated d-dimer consistent with acute pneumonia, age and chronic malignancy Leukopenia - likely secondary to chemotherapy Anemia - likely secondary to chemotherapy. (Electronically signed by Rancho Ramírez DO 11/08/2016 22:52)
--- NOTE | 2016-11-08 22:53 | ED MAR SUMMARY ---
..... Medication Administration Record [facility] [address] [place] [address] Patient: RILEY CAMERON Visit ID: [id number] 71y, M Weight: 104.3 kg Height/Length: 71 in BMI: 32.1 ALLERGIES: No Known Drug Allergy Given 17:55 11/08/2016 Ondina Gerard, Medication Administered: DUONEB [NEB TX] (IPRATROPIUM-ALBUTEROL), Dose: 1 unit dose Neb TX. Medication Ordered: DuoNeb Neb Tx 1 unit dose (NOW). Given 18:52 11/08/2016 Barbi Russ R.N. Medication Administered: AZITHROMYCIN [PO], Dose: 500 mg Capsules PO. Medication Ordered: Azithromycin PO 500 mg (NOW). Start 18:54 11/08/2016 Barbi Russ R.N. Medication Administered: CEFTRIAXONE [IVPB], Dose: 2 gm IVPB over 1 hour(s), Rate: 150 mL/hr, Dispensed: 50 mL bag, Site: #1 left. Medication Ordered: Ceftriaxone IV 2 gm/50mL (NOW). Start 18:54 11/08/2016 Barbi Russ R.N., Continued Upon Admission 20:06 11/08/2016 Griffin Davidson R.N. Medication Administered: IV NS (SALINE), Dose: IV Fluids over 1 hour(s), Rate: 500 mL/hr, Dispensed: 1000 mL bag, Site: #1 left. Medication Ordered: IV NS : initial bolus 500 mL (1000 mL/hr), then 250 mL/hr for X2 (NOW). Given 19:20 11/08/2016 Roderick Bustos, Medication Administered: ALBUTEROL [NEB TX], Dose: 1 unit dose Neb TX. Medication Ordered: Albuterol Neb Tx 1 unit dose (N).
--- NOTE | 2016-11-08 22:53 | ED MED RECONCILIATION SUMMARY ---
Patient: RILEY CAMERON Medication Reconciliation Report [facility] VisitID: [id number] [address] [place] [address] 71y, M Registration Date/Time: 11/08/2016 Weight: 104.3 kg Height/Length: 71 in. BMI: 32.1 ALLERGIES: No Known Drug Allergy The patient's Home Medications are listed below: THE FOLLOWING MEDICATIONS NEED TO BE RECONCILED: ASA Oral Chemo Cinnamon Oral Fish Oil Oral FLUoxetine HCl Oral 20 mg, daily Furosemide Oral Gabapentin Oral Garlic Oral INHALER Iron Oral Lisinopril Oral 10 mg, daily [place] Citrate Oral 300 mg, daily Lovastatin Oral (40 mg), daily MetFORMIN HCl Oral (1000 mg), 2x a day Methadose Oral Metoprolol Tartrate Oral Pramipexole Dihydrochloride Oral TraZODone HCl Oral The source(s) of the original Home Medication information: Not obtained. The following Medications were given to the patient in the Emergency Department: Duoneb [Neb Tx] Neb TX 1 unit dose, administered: 11/08/2016 5:55:00 PM Azithromycin [PO] PO 500 mg, administered: 11/08/2016 6:52:00 PM Ceftriaxone [IVPB] IVPB bolus 0, then 2 gm 150 mL/hr, administered: 11/08/2016 6:54:00 PM IV NS IV Fluids bolus 0, then 500 mL/hr, administered: 11/08/2016 6:54:00 PM Albuterol [Neb Tx] Neb TX 1 unit dose, administered: 11/08/2016 7:20:00 PM The following Medications were prescribed to the patient: None.
--- NOTE | 2016-11-08 22:53 | ED MED RECONCILIATION SUMMARY ---
Patient: RILEY CAMERON Medication Reconciliation Report [facility] VisitID: [id number] [address] [place] [address] 71y, M Registration Date/Time: 11/08/2016 Weight: 104.3 kg Height/Length: 71 in. BMI: 32.1 ALLERGIES: No Known Drug Allergy The patient's Home Medications are listed below: THE FOLLOWING MEDICATIONS NEED TO BE RECONCILED: ASA Oral Chemo Cinnamon Oral Fish Oil Oral FLUoxetine HCl Oral 20 mg, daily Furosemide Oral Gabapentin Oral Garlic Oral INHALER Iron Oral Lisinopril Oral 10 mg, daily [place] Citrate Oral 300 mg, daily Lovastatin Oral (40 mg), daily MetFORMIN HCl Oral (1000 mg), 2x a day Methadose Oral Metoprolol Tartrate Oral Pramipexole Dihydrochloride Oral TraZODone HCl Oral The source(s) of the original Home Medication information: Not obtained. The following Medications were given to the patient in the Emergency Department: Duoneb [Neb Tx] Neb TX 1 unit dose, administered: 11/08/2016 5:55:00 PM Azithromycin [PO] PO 500 mg, administered: 11/08/2016 6:52:00 PM Ceftriaxone [IVPB] IVPB bolus 0, then 2 gm 150 mL/hr, administered: 11/08/2016 6:54:00 PM IV NS IV Fluids bolus 0, then 500 mL/hr, administered: 11/08/2016 6:54:00 PM Albuterol [Neb Tx] Neb TX 1 unit dose, administered: 11/08/2016 7:20:00 PM The following Medications were prescribed to the patient: None.
--- NOTE | 2016-11-08 22:53 | ED DISCHARGE INSTRUCTIONS ---
Patient: RILEY CAMERON SR General Instructions [facility] VisitID: [id number] [address] [place] [address] 71y, M Registration Date/Time: 11/08/2016 Mild hypotension. Advanced lung cancer. Bacterial bronchopneumonia with hypoxemia. Vital signs recorded and reviewed; empiric antibiotics given in the ED. Elevated d-dimer consistent with acute pneumonia, age and chronic malignancy Leukopenia - likely secondary to chemotherapy Anemia - likely secondary to chemotherapy. (Electronically signed by Rancho Ramírez DO 11/08/2016 22:52)
--- NOTE | 2016-11-08 22:53 | ED MAR SUMMARY ---
..... Medication Administration Record [facility] [address] [place] [address] Patient: RILEY CAMERON Visit ID: [id number] 71y, M Weight: 104.3 kg Height/Length: 71 in BMI: 32.1 ALLERGIES: No Known Drug Allergy Given 17:55 11/08/2016 Ondina Gerard, Medication Administered: DUONEB [NEB TX] (IPRATROPIUM-ALBUTEROL), Dose: 1 unit dose Neb TX. Medication Ordered: DuoNeb Neb Tx 1 unit dose (NOW). Given 18:52 11/08/2016 Barbi Russ R.N. Medication Administered: AZITHROMYCIN [PO], Dose: 500 mg Capsules PO. Medication Ordered: Azithromycin PO 500 mg (NOW). Start 18:54 11/08/2016 Barbi Russ R.N. Medication Administered: CEFTRIAXONE [IVPB], Dose: 2 gm IVPB over 1 hour(s), Rate: 150 mL/hr, Dispensed: 50 mL bag, Site: #1 left. Medication Ordered: Ceftriaxone IV 2 gm/50mL (NOW). Start 18:54 11/08/2016 Barbi Russ R.N., Continued Upon Admission 20:06 11/08/2016 Griffin Davidson R.N. Medication Administered: IV NS (SALINE), Dose: IV Fluids over 1 hour(s), Rate: 500 mL/hr, Dispensed: 1000 mL bag, Site: #1 left. Medication Ordered: IV NS : initial bolus 500 mL (1000 mL/hr), then 250 mL/hr for X2 (NOW). Given 19:20 11/08/2016 Roderick Bustos, Medication Administered: ALBUTEROL [NEB TX], Dose: 1 unit dose Neb TX. Medication Ordered: Albuterol Neb Tx 1 unit dose (N).
--- NOTE | 2016-11-08 23:50 | NUR ---
PT HAS BOUTS OF COUGHING THAT IS NOT PRODUCTIVE. SOB WITH ANY EXERTION, USING NC WITH 3L. PT IS ABLE TO STAND AND PIVOT TO WHEELCHAIR TO USE BATHROOM. HEART RATE IS AROUND 114 WITH ANY MOVEMENT, TALKING OR COUGHING FIT. AWARE. PT LIVES AT HOME WITH , CHRYSTAL AND SHE MANAGES ALL OF HIS CARE. PLEASANT AND COOPERATIVE WITH ALL CARES, BED LOW AND LOCKED, CALL LIGHT ON BED. WCTM.
[2016-11-09] VITALS (7 sets, daily range): BP systolic 94–117; BP diastolic 43–70
--- NOTE | 2016-11-09 00:12 | NUR ---
PT. IS RESTING IN BED AT THIS TIME. IS ALERT, COOPERATIVE, AND ABLE TO MAKE NEEDS KNOWN. HAVING A COUGHING FIT, DRY NON PRODUCTIVE COUGH. RT IN TO GIVE BREATHING TREATMENT, EFFECTIVE. NOT IN DISTRESS. 02 PER NASAL CANNULA AT 3 L. WCTM.
--- NOTE | 2016-11-09 02:35 | NUR ---
Pt. continues to become SOB with exertion. Breathing treatment helped. Resting comfortably at this time. BG 126. WCTM.
--- NOTE | 2016-11-09 07:29 | Progress Note ---
Subjective General 71 y.o. male that has a lung CVA, CAD, CHF, COPD, prostate CA. Has been with chronic O2nc at home at 2 Liters. Was inconsistent with his breathing meds at home. Meds are expensive and he trys to stretch them out. He feels still weak but much improved from yesterday. Feels he may be ready for d/c tomorrow. Physical Exam Vital Signs / I&Os Vital Signs Date Time Temp Pulse Resp B/P Pulse O2 O2 Flow FiO2 Ox Delivery Rate 11/09 640 97.3 94 18 117/70 93 Nasal 2.0 Cannula 11/09 0225 97.5 97 16 109/60 92 Nasal 2.0 Cannula 11/09 0153 2.0 11/09 0005 3.0 11/08 2357 2.0 11/08 2225 98.2 89 18 111/55 92 Nasal 3.0 Cannula 11/08 2052 91 Nasal 3.0 Cannula 11/09 2031 98.1 97 20 109/54 88 Nasal 2.0 Cannula 11/08 2030 3.0 11/08 1923 2.0 11/08 1757 2.0 I&O 11/09 0000 11/08 1600 11/08 0800 Intake Total 1051 Output Total 375 Balance 676 General Appearance Alert, Cooperative HEENT Normal exam Lungs coarse BS non focal with good air movement. Cardiovascular Regular rate and rhythm Abdomen Soft, No tenderness Extremities right AKA, L tr edema Neurological Normal speech LAB Results Laboratory Tests 11/09 11/09 11/09 0530 0530 0530 Chemistry Hemoglobin A1c % (4.5 - 6.2 %) 5.9 Iron Pending TIBC Pending Iron Saturation Pending Vitamin B12 Pending Folate Pending 11/09 529 Chemistry Plasma Sodium (136 - 145 mmol/L) 138 Plasma Potassium (3.5 - 5.1 mmol/L) 4.5 Plasma Chloride (98 - 107 mmol/L) 103 CO2 (Enzymatic) (21 - 32 mmol/L) 31 BUN (7 - 18 mg/dL) 12 Creatinine (0.6 - 1.3 mg/dL) 0.6 Est GFR ( Amer) (mL/min) >60 Est GFR (Non-Af Amer) (mL/min) >60 Glucose (70 - 110 mg/dL) 116 Plasma Calcium (8.5 - 10.1 mg/dL) 8.5 Hematology WBC (4.5 - 11.5 K/uL) 2.1 RBC (4.50 - 5.90 M/uL) 3.10 Hgb (13.5 - 17.5 gm/dL) 8.4 Hct (41.0 - 53.0 %) 26.1 MCV (80 - 100 fL) 84 MCH (26 - 34 pg) 27 RDW (11.6 - 14.8 %) 19.8 Neut % (Auto) (50 - 75 %) 21 Lymph % (Auto) (25 - 40 %) 49 [place] % (Auto) (3 - 14 %) 1 Eos % (Auto) (0 - 4 %) 6 Baso % (Auto) (0 - 2 %) 1 Band Neutrophils % (0 - 8 %) 22 Metamyelocytes % (0 - 1 %) 0 Myelocytes (0 - 1 %) 0 Other Cell Type 0 Plt Count, EDTA (150 - 400 K/uL) 124 RBC Morphology (38241 A) VARIANT LYMPHS Hypochromic-Microcytic 3+ Anisocytosis (manual) 2+ PUBS MCHC (31 - 37 g/dL) 32 11/08 11/08 11/08 2138 1820 1820 Chemistry B-Natriuretic Peptide (5 - 100 pg/ml) 51.3 Procalcitonin (0 - 0.5 ng/mL) <0.5 Urines Urine Color YELLOW Urine Appearance CLEAR Urine pH (5.0 - 8.0) 7.5 Ur Specific [place] (1.010 - 1.030) <= 1.005 Urine Protein (NEGATIVE) NEGATIVE Urine Ketones (NEGATIVE) NEGATIVE Urine Blood (NEGATIVE) TRACE-INTACT Urine Nitrite (NEGATIVE) NEGATIVE Urine Bilirubin (NEGATIVE) NEGATIVE Urine Urobilinogen (0.2 - 1.0 EU/dL) 0.2 Ur Leukocyte Esterase (NEGATIVE) NEGATIVE Urine RBC (0 - 1 rbc/hpf) 0-1 Urine WBC (0 - 1 wbc/hpf) RARE Ur Epithelial Cells (0 - 5 EPI/hpf) RARE Urine Bacteria (NONE SEEN) NONE SEEN Urine Glucose (NEGATIVE) NEGATIVE Urine Comment CULT NOT INDICATED 11/08 11/08 1820 1820 Chemistry Plasma Sodium (136 - 145 mmol/L) 136 Plasma Potassium (3.5 - 5.1 mmol/L) 4.6 Plasma Chloride (98 - 107 mmol/L) 97 CO2 (Enzymatic) (21 - 32 mmol/L) 33 BUN (7 - 18 mg/dL) 17 Creatinine (0.6 - 1.3 mg/dL) 0.6 Est GFR ( Amer) (mL/min) >60 Est GFR (Non-Af Amer) (mL/min) >60 Glucose (70 - 110 mg/dL) 120 Plasma Calcium (8.5 - 10.1 mg/dL) 8.9 Plasma Magnesium (1.8 - 2.4 mg/dL) 1.9 Total Bilirubin (0.0 - 1.0 mg/dL) 0.4 AST (15 - 37 U/L) 27 ALT (12 - 78 U/L) 25 Alkaline Phosphatase (46 - 116 U/L) 76 Creatine Kinase (24 - 260 U/L) 27 Troponin (0.00 - 1.5 ng/mL) <0.05 Total Protein (6.4 - 8.2 g/dL) 6.6 Albumin (3.3 - 5.0 g/dL) 2.5 Amylase (25 - 115 U/L) 42 Lipase (73 - 393 U/L) 167 TSH 3rd Generation (0.30 - 3.74 uIU/mL) 1.904 Coagulation INR (0.8 - 1.2) 1.0 D-Dimer, Quantitative (0.27 - 0.52 ug/mLFEU) 1.27 Hematology WBC (4.5 - 11.5 K/uL) 2.5 RBC (4.50 - 5.90 M/uL) 3.38 Hgb (13.5 - 17.5 gm/dL) 9.3 Hct (41.0 - 53.0 %) 28.4 MCV (80 - 100 fL) 84 MCH (26 - 34 pg) 27 RDW (11.6 - 14.8 %) 19.6 Neut % (Auto) (50 - 75 %) Cancelled 50 Lymph % (Auto) (25 - 40 %) Cancelled 32 [place] % (Auto) (3 - 14 %) Cancelled 12 Eos % (Auto) (0 - 4 %) 2 Baso % (Auto) (0 - 2 %) 1 Band Neutrophils % (0 - 8 %) Cancelled 2 Metamyelocytes % (0 - 1 %) 0 Myelocytes (0 - 1 %) 0 Other Cell Type ONE VARIANT LYMPH Plt Count, EDTA (150 - 400 K/uL) 144 Hypochromic-Microcytic 1+ Anisocytosis (manual) 1+ PUBS MCHC (31 - 37 g/dL) 33 Microbiology Date/Time Procedure - Status Source Growth 11/09 1839 Blood Culture - RECD BLOOD 11/08 1829 Blood Culture - RECD BLOOD Assessment and Plan Problem List 1. Lung cancer Plan Has heme/onc treatment as out patient and low counts likely chemo related 2. Pneumonia Status Acute Onset Date Unknown Plan change to oral abx. Likely d/c tomorrow. 3. CHF (congestive heart failure) Status Chronic Onset Date Unknown Plan No signs of this being active and no need for echo at this time. 4. Diabetes mellitus Status Chronic Onset Date Unknown Plan great control on the DM with metformin alone, on steroids may increase BS some. 5. Anemia Status Acute Onset Date Unknown Plan low hct and likely has this from chemo, and delutional effect. Await on Fe studies 6. COPD (chronic obstructive pulmonary disease) Status Chronic Onset Date Unknown Plan Has chronic copd and will give consistent meds for breathing here.
--- NOTE | 2016-11-09 11:47 | NUR ---
Pt with a Wang of 16- is Chair fast, very limited in mobility, at risk for friction and shear, history of cancer, currently receiving chemotherapy, right AKA, psoriasis. Pt has WAFFLE mattress, and WAFFLE chair pad, being monitored closely and repostioned.
--- NOTE | 2016-11-09 22:06 | NUR ---
A&OX4. VSS. REQUIRING 4 LO2 VIA NC TO KEEP SATS AT 88%. RECOVERS WELL FROM "COUGHING SPELLS". HOB ELEVATED. PT STATING HE FEELS LIKE HE IS NOT READY TO DISCHARGE HOME TOMORROW BECAUSE HE STILL FEELS "TIGHT IN THE CHEST" AND DOESN'T WANT TO HAVE TO COME BACK. SOB WITH MILD EXERTION. SINUS TACH. LAB REPORTED AEROBIC BOTTLE GROWING GRAM POSITIVE COCCI BUT NOT IN ANY OTHER BOTTLES. AT BEDSIDE THIS EVENING. WCTM.
[2016-11-10] VITALS (9 sets, daily range): BP systolic 93–120; BP diastolic 47–66
--- NOTE | 2016-11-10 07:24 | Progress Note ---
Subjective General 71 y.o male with copd, lung ca, dm, htn, cad who presented to the ER with SOB and diagnosed with a new pnemonia. States he had a couple really bad coughing episodes yesterday. Also, blood cx pos last pm awaiting cx. Was supposed to have CT lungs as out patient Monday but wonders if he can get it done today. Physical Exam Vital Signs / I&Os Vital Signs Date Time Temp Pulse Resp B/P Pulse O2 O2 Flow FiO2 Ox Delivery Rate 11/10 0627 92 24 93/50 85 CPAP 4.5 05/ 0200 97.7 106 23 96/47 86 CPAP 4.5 05/04 0117 4.0 05/04 0005 Nasal 4.0 Cannula 05/ 2209 98.4 109 17 94/45 89 Nasal 4.0 Cannula 05/ 2136 88 Nasal 4.0 Cannula 05/03 2030 4.0 05/ 1912 3.0 05/03 1836 117 18 100/43 84 Nasal 3.0 Cannula 05/03 1720 3.0 05/03 1426 98.1 99 18 108/54 87 Nasal 3.0 Cannula 05/03 1359 98.1 102 18 106/45 91 Nasal 3.0 Cannula 05/03 1344 3.0 05/03 1034 97.9 95 16 101/51 90 Nasal 3.0 Cannula 05/03 0943 3.0 05/03 0738 3.0 05/03 0730 Nasal 3.0 Cannula I&O / 0000 05/03 1600 05/03 0800 Intake Total 840 1065 945 Output Total 350 550 600 Balance 490 515 345 General Appearance Alert, Cooperative HEENT Normal exam Lungs coarse BS and a little crackles on the L lung field. Cardiovascular Regular rate and rhythm Abdomen Soft, No tenderness Extremities No edema Neurological Normal exam Assessment and Plan Problem List 1. Lung cancer Plan Patient is with lung CA and repeat CT due at this time. 2. Pneumonia Status Acute Onset Date Unknown Plan Has been with pneumonia ? as he has abnl lung xray baseline and normal procalcitonin. ? contimination on the blood cx awaiting identification. 3. Diabetes mellitus Status Chronic Onset Date Unknown Plan Stable. Good control 4. COPD (chronic obstructive pulmonary disease) Status Chronic Onset Date Unknown Plan Has severe coughing jags and higher amount of O2 than baseline. Will try to wean down on O2 this am.
--- NOTE | 2016-11-10 07:27 | NUR ---
PT A&OX3, ABLE TO MAKE NEEDS KNOWN, PLEASANT AND COOPERATIVE DURING CARE. FAINT CRACKLES NOTED IN L MID FIELD, ON 4L O2 VIA NC AND CPAP; DESATTED TO 84% WITH MILD ACTIVITY AND PT C/O MILD SOB, O2 FLOW INCREASED TO 4.5L, SOB RESOLVED AND RSD SLEPT COMFORTABLY. INDEPENDENT BED MOBILITY. HEART RHYTHM SINUS TACHYCARDIA WITH PVCs. PORT-A-CATH IN L CHEST WITHOUT SX OF COMPLICATION. VSS.
--- NOTE | 2016-11-10 14:04 | NUR ---
PT DOWN TO CT AT 1400. TRANSPORTED BY PULP PILER AND WHEELCHAIR. AT SIDE. WCTM
--- NOTE | 2016-11-10 15:21 | DIAGNOSTIC IMAGING REPORT ---
PROCEDURE: CT THORAX ABD PELVIS W/CONT INDICATION: History of lung cancer with shortness of breath. TECHNIQUE: 125 ml of Isovue 300 injected intravenously and axial images were obtained of the entire thorax, abdomen, and pelvis with sagittal and coronal reformations. COMPARISON: Chest x-ray 11/08/[address] chest/abdomen/pelvis 09/29/2016. FINDINGS: THORAX: Interval mild decrease in the solid component of the right upper lobe lung mass medially. Right hemithorax volume loss is unchanged. Pulmonary fibrosis throughout the right lung. Moderate emphysema with a moderate left mid lung infiltrate which has improved since Chest x-ray 11/08/2016. Improved small right but new small left pleural effusions. Improved right hilar adenopathy. Otherwise stable small precarinal and subcarinal lymph nodes. Left subclavian Port-A-Cath in satisfactory position. Mild atherosclerosis of the aorta. Median sternotomy and CABG. Heart size is normal. No suspicious osseous lesions. ABDOMEN: Cholecystectomy. Splenomegaly (15.5 cm). Liver, pancreas and adrenal glands are normal. 5.1 cm right renal lower pole parapelvic cyst. Stable 1.1 cm nonobstructing right renal lower pole calcification. Small left renal cyst. Moderate atherosclerosis of the aorta. Mild descending colon diverticulosis. Mild degenerative changes. PELVIS: Nonvisualization of the appendix. Prostatectomy. Left inguinal hernia containing a small portion of unobstructed proximal sigmoid colon. Normal bladder. No pelvic mass, free fluid or adenopathy. Right hip dynamic screw in place. IMPRESSION: 1. Improved left mid lung infiltrate with new small left pleural effusion. 2. Interval mild decrease in the solid component of the right upper lobe lung mass, right hilar adenopathy and small right pleural effusion. 3. Mild splenomegaly 4. Cholecystectomy and prostatectomy 5. Stable small left inguinal hernia containing a small portion of nonobstructed sigmoid colon 6. Results discussed with Dr. Cooper All CT scans at this facility use dose modulation, iterative reconstruction, and/or weight-based dosing when appropriate to reduce radiation dose to as low as reasonably achievable.
--- NOTE | 2016-11-10 15:22 | NUR ---
RETURNED FROM CT AROUND 1435. SITTING IN ROOM IN WHEELCHAIR WATCHING TV. IMAGING DEPARTMENT STATES THEY USED PORT A CATH AND FLUSHED WITH SALINE. WILL FLUSH WITH HEPARIN SINCE HE IS HEPARIN LOCKED. O2 SATS ON 5 L @ 92%. REDUCED O2 FLOW TO 3.5 L. WILL RETEST SATS. WCTM.
--- NOTE | 2016-11-10 16:41 | NUR ---
NOTIFIED DR. QUEZADA OF PULSE IN THE 120'S-130'S WITH FREQUENT PVC'S AND THREE SHORT RUNS OF VTACH TODAY. INFORMED HIM OF PT STATING HE IS MORE SOB TODAY AND HAVING DIFFICULTY CATCHING HIS BREATH AFTER MINIMAL EXERTION ACCOMPANIED WITH SUBSTERNAL CHEST PAIN. PT REQUIRING 4-5 L OF O2 TO MAINTAIN SATS BETWEEN 87-90%. INFORMED HIM OF CRACKLES PRESENTING HEARD IN LEFT LOWER AND MIDDLE LOBE. ALSO OF LOW BP AND HOLDING METOPROLOL THIS MORNING. NEW ORDERS FOR METOPROLOL TARTRATE 12.5MG BID, ABG'S AND TROPONIN LAB. DR. QUEZADA STATES CT SHOWS MILD IMPROVEMENT AND CRACKLES ARE LIKELY NOT A RESULT OF CHF. ABG'S NOW DRAWN. WCTM.
--- NOTE | 2016-11-10 19:48 | NUR ---
REPORT GIVEN TO [facility]. PREPARING TO TRANSFER PT TO ROOM 305
--- NOTE | 2016-11-10 20:18 | NUR ---
PATIENT UP TO THE FLOOR WITH HIS TRANSPORTED UP WITH THE CROSS TIE CUTTER AND FORMWORK CARPENTER, HEART RATE IN THE 120'S SINUS, WITH FREQUENT PVC'S. BLOOD PRESSURE AT 117/60 ON TEN LITERS OF OXYGEN NASAL CANNULA WITH A SAT OF 94 PERCENT. XRAY TO ROOM FOR REPEAT CHEST XRAY.
--- NOTE | 2016-11-10 21:05 | DIAGNOSTIC IMAGING REPORT ---
PROCEDURE: XR CHEST 1 VIEW INDICATION: RESPIRATORY DISTRESS TECHNIQUE: Portable AP view 08:52 p.m. COMPARISON: Chest x-ray 11/08/2016. FINDINGS: Poor inspiration with diffuse coarse interstitial markings consistent with fibrosis. Improved mild left basilar infiltrate. New right mid lung infiltrate. No change in the right apical pleural thickening/mass Mediastinal sternotomy and CABG. Normal heart size. Left subclavian Port-A-Cath in stable position. Thorax is normal. IMPRESSION: 1. New small right mid lung infiltrate 2. Improved left basilar infiltrate 3. Poor inspiration with pulmonary fibrosis 4. Stable right apical pleural thickening/mass 5. CABG 6. Results called to the CCU.
--- NOTE | 2016-11-10 21:58 | Progress Note ---
Subjective General SOB increased. ABG done and likely venous, repeat ok, d dimer improved but will check on VQscan; bnp wnl, CT chest better yesterday.CXR ? right infiltrate. plan VQscan, re check labs am for anemia, O2, breathing treatments, full dose lovenox
--- NOTE | 2016-11-10 22:06 | NUR ---
RESULTS OF THE LAB DRAWS, ABG AND XRAY RELAYED TO DR QUEZADA. PATIENT IS NOW AT 8 LITERS ON THE OXYMASK SATTING AT 90 PERCENT. PATIENT DOES DE-SAT DOWN TO THE 70'S WHEN HE TAKES THE OXYMASK OFF.
--- NOTE | 2016-11-10 23:49 | NUR ---
PATIENT DOING BETTER, PATIENT STILL TACHY BUT HEART RATE NOW IN THE 110'S, FREQUENT PVC'S, ON HIS CPAP WITH THE OXYGEN AT 8 OXYMASK LITERS AND SATURATIONS AT 90-92 PERCENT. NO PAIN AT THIS TIME. PORT TO THE LEFT CHEST HEPLOCKED, FLUSHED WELL EARLIER WITH SALINE. UP TO SIT AT THE EDGE OF THE BED TO USE URINAL, STATES THIS TIME HE DID NOT FEEL SHORT OF BREATH HE DID LAST TIME WHEN SITTING AT THE EDGE OF THE BED. SPOKE TO DR QUEZADA EARLIER REGARDING HOLDING METFORMIN, TO HOLD TONIGHT. WILL MONITOR.
[2016-11-11] VITALS (14 sets, daily range): BP systolic 100–135; BP diastolic 42–73
--- NOTE | 2016-11-11 02:01 | NUR ---
PATIENT ASLEEP, WAKES UP EASILY TO VERBAL COMMAND AND TOUCH. TELE SHOWS HEART RATE AT 102, BP AT 112/60 SATS AT 93 PERCENT.
--- NOTE | 2016-11-11 06:58 | Progress Note ---
Subjective General Patient is a 71 y.o. male who was admitted for pneumonia. He has a hx of copd, lung CA, amputation, DM, HTN, CAD. He has been treated with abx. WBC, CT chest both reassuring. Has anemia that is likely related to the chemo for lung CA. Yesterday was acutely feeling more SOB. Work up really did not give a good answer. His ABG was ok, rest of his labs not much change, CT much improved but later CXR with new infiltrate. Neg Trop I, d -dimer improved. Will check on VQ scan for completeness but I suspect the increase in SOB is multi factorial and likely related to his pulmonary scarring and baseline copd. Is feeling a little better this am but still on oxy mask. Physical Exam Vital Signs / I&Os Vital Signs Date Time Temp Pulse Resp B/P Pulse O2 O2 Flow FiO2 Ox Delivery Rate 05/05 0600 94 20 114/63 94 CPAP 7.0 05/05 0500 97.3 91 20 117/50 92 CPAP 7.0 05/05 0400 95 20 109/57 90 CPAP 7.0 05/05 0300 97 20 126/57 94 CPAP 7.0 05/05 0200 102 22 122/61 92 CPAP 7.0 05/05 0118 7.0 05/05 0100 107 22 112/60 91 CPAP 7.0 05/05 0000 98.8 107 15 112/56 93 CPAP 5.0 05/04 2300 110 20 106/52 94 CPAP 5.0 05/04 2204 120/57 05/04 2202 124 20 86 Mask 8.0 05/04 2107 8.0 05/04 2100 Mask 10.0 05/04 2100 117 20 106/52 92 Mask 8.0 05/04 2016 126 22 117/60 94 Mask 10.0 05/04 1936 10.0 05/04 1843 98.1 133 23 105/60 96 Nasal 10.0 Cannula 05/04 1833 10.0 05/04 1718 5.0 05/04 1551 26 90 Nasal 4.0 Cannula 05/04 1520 Nasal 3.5 Cannula 05/04 1454 98.2 115 20 102/66 92 Nasal 5.0 Cannula 05/04 1407 4.0 05/04 1303 4.0 05/04 1004 98.1 104 21 93/50 90 Nasal 4.0 Cannula 05/04 0730 4.0 I&O 11/11 0000 11/10 1600 11/10 0800 Intake Total 200 737 Output Total 403 553 6453 Balance -625 237 -1000 General Appearance Alert, Cooperative HEENT Atraumatic Lungs coarse BS with good air movement. Cardiovascular Regular rate and rhythm Abdomen Soft, No tenderness Extremities L AKA; right tr edema LAB Results Laboratory Tests 11/11 1900 Blood Gas Sample Site RR Total CO2 (24.0 - 30.0 mmol/L) 30.6 ABG pH (7.35 - 7.45) 7.44 ABG pCO2 at Pt Temp (35 - 45 mmHg) 43.0 ABG pO2 at Pt Temp (60.0 - 80.0 mmHg) 65.3 ABG HCO3 (20.0 - 26.0 mmol/L) 29.3 ABG O2 Sat Calc/Oskar (95.1 - 100.0 %) 93.3 ABG Base Excess (-6.0 - -6.0 mmol/L) 4.8 ABG Reduced Hgb (%) 6.5 ABG Carboxyhemoglobin (0.5 - 1.5 %) 2.4 ABG Methemoglobin (0.4 - 1.5 %) 0.1 Diego Test YES Other Total Hgb (14.0 - 18.0 g/dL) 8.8 A-a O2 Gradient (7.0 - 14.0 mmHg) 253.3 Hgb O2 Saturation (95.0 - 100.0 %) 91.0 Respiration Rate (/MIN) 20 O2 Liters/Min (0 - 20 L/MIN) 8 Vent Mode OXYMASK FiO2 (20 - 101 %) 52 Chemistry Plasma Sodium (136 - 145 mmol/L) 142 Plasma Potassium (3.5 - 5.1 mmol/L) 3.6 Plasma Chloride (98 - 107 mmol/L) 103 CO2 (Enzymatic) (21 - 32 mmol/L) 30 BUN (7 - 18 mg/dL) 9 Creatinine (0.6 - 1.3 mg/dL) 0.5 Est GFR ( Amer) (mL/min) >60 Est GFR (Non-Af Amer) (mL/min) >60 Glucose (70 - 110 mg/dL) 128 Plasma Calcium (8.5 - 10.1 mg/dL) 8.5 Total Bilirubin (0.0 - 1.0 mg/dL) 0.3 AST (15 - 37 U/L) 15 ALT (12 - 78 U/L) 19 Alkaline Phosphatase (46 - 116 U/L) 66 Troponin (0.00 - 1.5 ng/mL) <0.05 B-Natriuretic Peptide (5 - 100 pg/ml) 68.3 Total Protein (6.4 - 8.2 g/dL) 6.0 Albumin (3.3 - 5.0 g/dL) 2.1 Coagulation D-Dimer, Quantitative (0.27 - 0.52 ug/mLFEU) 1.03 Hematology WBC (4.5 - 11.5 K/uL) 2.3 RBC (4.50 - 5.90 M/uL) 3.02 Hgb (13.5 - 17.5 gm/dL) 8.0 Hct (41.0 - 53.0 %) 25.6 MCV (80 - 100 fL) 85 MCH (26 - 34 pg) 27 RDW (11.6 - 14.8 %) 19.8 Neut % (Auto) (50 - 75 %) 25 Lymph % (Auto) (25 - 40 %) 47 [place] % (Auto) (3 - 14 %) 2 Eos % (Auto) (0 - 4 %) 4 Baso % (Auto) (0 - 2 %) 2 Band Neutrophils % (0 - 8 %) 20 Metamyelocytes % (0 - 1 %) 0 Myelocytes (0 - 1 %) 0 Other Cell Type 0 Plt Count, EDTA (150 - 400 K/uL) 153 Hypochromic-Microcytic 2+ Anisocytosis (manual) 2+ Target Cells 1+ PUBS MCHC (31 - 37 g/dL) [address]-IMPRESSION: 1. Improved left mid lung infiltrate with new small left pleural effusion. 2. Interval mild decrease in the solid component of the right upper lobe lung mass, right hilar adenopathy and small right pleural effusion. 3. Mild splenomegaly 4. Cholecystectomy and prostatectomy 5. Stable small left inguinal hernia containing a small portion of nonobstructed sigmoid colon CXR- IMPRESSION: 1. New small right mid lung infiltrate 2. Improved left basilar infiltrate 3. Poor inspiration with pulmonary fibrosis 4. Stable right apical pleural thickening/mass 5. CABG Assessment and Plan Problem List 1. Lung cancer Plan Patient with lung CA and is stable at this time on the CT a little improvement. Has heme/onc f/u pending 2. Pneumonia Status Acute Onset Date Unknown Plan Better on CT chest yesterday but still sob. CXR with new right sided pneumonia. Blood cx pos that is likely contamination 3. COPD (chronic obstructive pulmonary disease) Status Chronic Onset Date Unknown Plan Has sob and coughing. Worse oxygenation may need to increase on steroids. Await on VQ scan. 4. Anemia Status Acute Onset Date Unknown Plan some anemia that is around the same as yesterday. Likely chemo related.
--- NOTE | 2016-11-11 09:44 | NUR ---
NUTRITION ASSESSMENT: S: Pt admitted with dx/o PNA, hx/o lung CVA, CAD, CHF, COPD, prostate cancer, CABG x 4, lung ca, DM, HTN, depression (see H&P for details). Pt eating 80-100% of general diet, no problems with chewing or swallowing noted or reported. O: Diet Rx: General Regular Thin Liquids NKFA Wts: 95 kg Ht: 71" IBW: 72-83 kg BMI: 29 %IBW: ~114 ABW: ~83 kg Est Kcals: ~8174-6454 kcals per day Est Pro: ~85-100 g per day Est Fluids: ~2.5 l per day Meds Incl: asprin, lipitor, ceftin, cymbalta, lasix, gabapentin, metformin, metoprolol, prednisone, trazedone, LD SSI, see eMar for complete list. Labs Incl: (11/11) glucose 128, BUN 9, Creat 0.5, Na+ 142, K+ 3.6, total pro 6.0, albumin 2.1, Ca+ 8.5, HCT 25.6, HCT 8.0, MCV 85, MCH 27 (11/09) A1c: 5.9 (est average 123) Skin: Wang Score 18; waffle overlay in place psoriasis (generalized) Accuchecks: 105-185 A: Pts appetite appears to be intact ~80-100%. Rec consider changed diet to cardiac and consistant carb 2/2 hx/o diabetes, CABG, CAD and CVA. Rev'd meds and labs. Metformin and low dose sliding scale insulin place for coveage. May see wts fluctuate with diuretic tx/lasix. A1c appears wnl. May see increase glucose labs in addition to hx/o DM 2/2 prednisone rx/corticosteroid (s/e = hyperglycemia). RD to follow up an dmonitor nutrition indices prn/protocol. P: 1. Rec change diet to Consistent Carb and Cardiac Diet
--- NOTE | 2016-11-11 13:12 | DIAGNOSTIC IMAGING REPORT ---
PROCEDURE: NM PULMONARY PERFUSION W/VENT INDICATION: elevated d dimer,sob TECHNIQUE: 40 mCi of technetium-99m DTPA was aerosolized and inhaled. 6 mCi technetium-99m MAA was injected intravenously. Ventilation and perfusion images were obtained in the AP, PA, right lateral, left lateral, [place], [place], RPO and LPO positions. COMPARISON: Chest x-ray 11/10/[address] chest 11/10/2016. FINDINGS: There are multiple ventilatory defects of largest in the right apex corresponding to the right apical mass. There are matching perfusion defects which are much smaller. IMPRESSION: 1. Extensive bilateral ventilation and smaller perfusion defects consistent with underlying COPD and right upper lung mass. Low probability of pulmonary emboli. 2. Results discussed with Dr. Cooper
--- NOTE | 2016-11-11 13:12 | DIAGNOSTIC IMAGING REPORT ---
PROCEDURE: NM PULMONARY PERFUSION W/VENT INDICATION: elevated d dimer,sob TECHNIQUE: 40 mCi of technetium-99m DTPA was aerosolized and inhaled. 6 mCi technetium-99m MAA was injected intravenously. Ventilation and perfusion images were obtained in the AP, PA, right lateral, left lateral, [place], [place]IZ[place], RPO and LPO positions. COMPARISON: Chest x-ray 11/10/[address] chest 11/10/2016. FINDINGS: There are multiple ventilatory defects of largest in the right apex corresponding to the right apical mass. There are matching perfusion defects which are much smaller. IMPRESSION: 1. Extensive bilateral ventilation and smaller perfusion defects consistent with underlying COPD and right upper lung mass. Low probability of pulmonary emboli. 2. Results discussed with Dr. Cooper
--- NOTE | 2016-11-11 14:53 | NUR ---
Patient alert and oriented throughout shift. No complaints of pain, nausea, or vomiting. Patient is sob and oxygen saturation drops with minimal exertion. Patient went down for VQ scan, upon return was sustaining heart rate of 125-130, notified Dr. Cooper and orders received. Will continue to monitor patient.
--- NOTE | 2016-11-11 17:23 | NUR ---
Patient continued to be alert and oriented throughout shift. Digoxin effective for bringing down patient's heart rate. Pain medication given as ordered, no complaints of nausea or vomiting. Patient up to chair eating dinner. Will continue to monitor patient.
--- NOTE | 2016-11-11 19:47 | NUR ---
I discussed with the patient their current medications, possible side effects, and answered questions.
--- NOTE | 2016-11-11 22:27 | NUR ---
A&OX4. HR IN 110'S WITH FREQUENT PVCS. UP TO 120'S WHEN COUGHING OR AMBULATING. 9 L O2 VIA NC AND SATURATING AT 94%. PT NOT TOLERATING OXYMASK FOR HIGH FLOW OXYGEN. WILL USE CPAP OVER NIGHT AND IF STILL REQUIRING HIGH FLOW O2 TOMORROW WILL REQUEST HIGH FLOW NC. PT IS NOT INTERESTED IN TESTING O2 SATS WITH A DECREASE IN L/MIN TONIGHT. WHEN PT TAKES O2 OFF OR EXERTS HIMSELF, HE DESATS TO THE 70'S AND C/O CHEST PAIN WITH THIS. WHEN DESATS, REQUIRES INCREASE O2 FLOW AND OXYMASK AND TAKES A FEW MINUTES TO RECOVER SATS AND NOT BE SOB. C/O HEARTBURN THIS SHIFT. STATES MILK HELPS A LITTLE. AT BEDSIDE. CALM AND COOPERATIVE WITH CARE. WCTM.
[2016-11-12 02:08] VITALS: BP 103/51
--- NOTE | 2016-11-12 06:10 | NUR ---
PT RESTING IN BED WITH NO COMPLAINTS ALL NIGHT, BUT IS REPORTING 8/10 HEAD AND NECK ACHE THIS MORNING, GIVEN RX TO TREAT. ASSISTED PT TO SIT UP AND USE THE URINAL AND THEN REPOSITION IN BED. PT HAS BEEN SINUS TACH THROUGHOUT THE NIGHT WITH HEART RATE MOSTLY STAYING BELOW 110. O2 SAT HAS BEEN STAYED MID 90S WITH CPAP ON, ONLY DROPPING DOWN BRIEFLY A FEW TIMES WHEN PT WAS MOVING AROUND IN BED.
[2016-11-12 06:41] VITALS: BP 119/57
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
--- NOTE | 2016-11-12 10:12 | Progress Note ---
Subjective General Sterling Marie is a 71-year-old white male admitted 11/08/16 with increased shortness of breath. He has a right upper lobe lung carcinoma and history of COPD and pulmonary fibrosis. He has had new right and left lower lobe infiltrates suggesting pneumonia. He continues with chemotherapy every 3 weeks. He is oxygen dependent and uses supplemental oxygen. At home he was fairly mobile and his power wheelchair and was not particularly short of breath with transfers and other minimal daily activities. Since he developed shortness of breath from the has been very limited in activity. It's very taxing for him even to transfer from bed to the bedside chair or bedside commode. He did have an evaluation yesterday for possible pulmonary embolus with VQ scan. This was negative. He has been started on 40 mg of prednisone daily in addition to his other medications to see if this will be helpful. Constitutional Weakness, Malaise. Denies: Fever, Chills, Sweats. Eyes Denies: Pain, Vision Change, Conjunctival Inflammation, Eyelid Inflammation. ENT Denies: Ear Pain, Nasal Congestion, Mouth Pain, Mouth Swelling, Throat Pain, Throat Swelling. Respiratory Dry, SOB w/exertion. Denies: Sputum. Cardiovascular Denies: Chest Pain, Palpitations, Orthopnea, PND, Edema. Gastrointestinal Denies: Nausea, Vomiting, Abdominal Pain, Diarrhea, Melena, Hematochezia. Genitourinary Denies: Dysuria, Incontinence. Musculoskeletal Denies: Other (no complaints of musculoskelet). Skin Denies: Rash, Lesions, Bruising. Neurological Weakness, Other (burning pain on the left foot). Denies: Incoordination, Change in speech, Confusion. Physical Exam Vital Signs / I&Os Vital Signs Date Time Temp Pulse Resp B/P Pulse O2 O2 Flow FiO2 Ox Delivery Rate 11/12 0916 7.0 11/12 0734 7.0 11/12 0732 Nasal 7.0 Cannula 11/12 0641 97.3 106 15 119/57 94 Nasal 9.0 Cannula 11/12 0320 9.0 11/12 0208 97.5 107 14 103/51 94 Nasal 9.0 Cannula 11/12 0031 7.0 11/11 2340 Nasal 9.0 Cannula 11/11 2221 97.5 126 18 118/49 91 Nasal 9.0 Cannula 11/11 2054 9.0 11/11 2028 Nasal 9.0 Cannula 11/11 1711 98.6 115 29 110/51 92 Nasal 9.0 Cannula 11/11 1513 97.9 119 21 106/42 92 Nasal 9.0 Cannula 11/11 1442 124 11/11 1407 97.9 133 22 100/62 93 Nasal 9.0 Cannula 11/11 1301 9.0 I&O 11/11 0800 05/05 1600 05/06 0000 Intake Total 100 720 390 Output Total 500 Balance 100 720 -110 General Appearance Alert, Oriented X3, Cooperative, No acute distress HEENT Normal exam, Moist mucous membranes, no obvious thrush. Lungs bilateral rather coarse breath sounds with some faint bibasilar rales and rhonchi. No significant wheezing. Cardiovascular slightly tachycardic. S1 and S2 are normal there is no pronounced murmur and no S3. Abdomen Normal bowel sounds, Soft, No tenderness, No guarding, No rebound, No masses Extremities right above-knee amputation. Left lower extremity shows no significant edema. Dorsalis pedis pulses +2 and easily felt. Skin No Rashes, No Breakdown, No Significant Lesions Neurological Normal speech, Cranial nerves intact, No lateralizing signs Psych/Mental Status Mental status normal, somewhat depressed and anxious about lack of improvement. LAB Results Laboratory Tests 11/12 0501 Hematology WBC (4.5 - 11.5 K/uL) 2.4 RBC (4.50 - 5.90 M/uL) 3.08 Hgb (13.5 - 17.5 gm/dL) 8.4 Hct (41.0 - 53.0 %) 26.0 MCV (80 - 100 fL) 85 MCH (26 - 34 pg) 27 RDW (11.6 - 14.8 %) 19.6 Neut % (Auto) (50 - 75 %) 36 Lymph % (Auto) (25 - 40 %) 22 [place] % (Auto) (3 - 14 %) 38 Eos % (Auto) (0 - 4 %) 2 Baso % (Auto) (0 - 2 %) 2 Band Neutrophils % (0 - 8 %) 0 Metamyelocytes % (0 - 1 %) 0 Myelocytes (0 - 1 %) 0 Other Cell Type 0 Plt Count, EDTA (150 - 400 K/uL) 145 Polychromasia 1+ Hypochromic-Microcytic 2+ Anisocytosis (manual) 1+ Microcytosis (manual) 1+ PUBS MCHC (31 - 37 g/dL) 32 Assessment and Plan Problem List 1. Lung cancer Plan Patient is currently stable with this problem and CBC seems to show the residual effects of chemotherapy. White blood cell count is somewhat low but stable and red blood cell count is also low at 26 but stable. 2. Pneumonia Status Acute Onset Date 11/08/16 Plan Patient is continuing on cefuroxime orally. He generally seems to be slightly improved. We'll continue cefuroxime for now. 3. COPD (chronic obstructive pulmonary disease) Status Chronic Onset Date Unknown Plan Patient has been started on prednisone at 40 mg daily. He hasn't noticed a major change with this. He may benefit from managing this up slightly and will order 60 mg daily adding another 20 mg today and then with 60 mg every morning starting tomorrow. 4. Anemia Status Acute Onset Date Unknown Plan Hematocrit is stable around 26. No active treatment for this. This is probably secondary to chemotherapy. There is no evidence of ongoing blood loss. 5. Diabetes mellitus Status Chronic Onset Date Unknown Plan Blood sugars have been in the low 100s and controlled with sliding scale insulin. Continue current oral medications and current sliding scale. This will need to be reviewed to see if increasing the prednisone substantially alters blood sugar control. 6. Tachycardia Plan Tachycardia is most likely related to other underlying problems of COPD, relative hypoxia and low-grade anemia. E&M Codes Rounding: Inpt-[id number]
[2016-11-12 11:28] VITALS: BP 129/64
--- NOTE | 2016-11-12 11:38 | NUR ---
PATIENT RESTING IN BED THIS AM AFTER BREAKFAST AND ON 6LNC AT 94%. WHEN PATIENT AWOKE AFTER NAP PATIENT DESATTED TO UPPER 60'S AND HR WENT UP TO 30'S. PATIENT WITH SOB AND NEEDED OXYMASK TO 15L TO GET SATS UP. PATIENT SAID THAT THIS HAPPENS 'ALL THE TIME' AT HOME. PATIENT NOW RESTING IN BED ON OXYMASK WITH SATS 89% AND HR 125. PATIENT OK'D FOR SATS 89% AND ABOVE.
--- NOTE | 2016-11-12 12:52 | NUR ---
PATIENT HR AT 120'S AFTER EPISODE OF SOB. PATIENT ABLE TO EAT LUNCH. DECREASED O2 TO 8LNC AND SATTING 91%. PHONE CALL TO DR. MARTINES REGARDING HR 120'S SUSTAINED AFTER DIGOXIN DOSE GIVEN. MD STATES HE DOES NOT WANT ANY NEW ORDERS AT THIS TIME BUT JUST TO MONITOR PATIENT AT THIS TIME.
[2016-11-12 14:00] VITALS: BP 102/55
[2016-11-12 18:37] VITALS: BP 101/64
[2016-11-12 23:04] VITALS: BP 144/68
--- NOTE | 2016-11-12 23:47 | NUR ---
PATIENT TRANSFERRED TO TOILET FROM WHEELCHAIR, HAD DIFFICULTY BREATHING, ASKED FOR OXYMASK, DISCONNECTED NASAL CANNULA TO ATTACH MASK AND PATIENT INCREASED WORK OF BREATHING, COULD NOT TOLERATE HAVING NO OXYGEN AT ALL, WAS ABLE TO INCREASE SATS EVENTUALLY WHEN PATIENT WAS PLACED ON NC AT 9L AND MASK AT 15L, MD CALLED TO DISCUSS HIGH FLOW NC, PATIENT CAN MAINTAIN O2 LEVELS WHEN NOT EXERTING SELF AT ALL BUT ANY MINIMAL MOVEMENT AND PATIENT IS IN RESPIRATORY DISTRESS, MD DECIDED PATIENT WAS NOT A GOOD CANDIDATE FOR HIGH FLOW AND GAVE OTHER ORDERS, PATIENT HAD MEDIUM LARGE SOFT BOWEL MOVEMENT AND WAS EVENTUALLY ABLE TO TRANSFER BACK TO WHEELCHAIR AND AFTER EXTENSIVE REST WAS ABLE SHYANNE TRANSFER INTO BED, CURRENTLY RESTING COMFORTABLY IN BED, O2 SAT IS 92% ON 9L NC, WILL CONTINUE TO MONITOR
[2016-11-13 03:01] VITALS: BP 128/70
[2016-11-13 07:35] VITALS: BP 122/57
--- NOTE | 2016-11-13 10:09 | Progress Note ---
Subjective General Pt. continues to have difficulties with SOB with minimal exertion Constitutional Weakness, Malaise. Denies: Fever, Chills, Sweats. Eyes Denies: Pain, Vision Change. ENT Denies: Nasal Discharge, Nasal Congestion, Mouth Pain. Respiratory Cough, Dry, SOB w/exertion, Hemoptysis. Denies: Sputum (no major change). Cardiovascular Denies: Chest Pain, Palpitations, Orthopnea, Edema, Light-headedness. Gastrointestinal Denies: Nausea, Vomiting, Abdominal Pain, Diarrhea. Genitourinary Denies: Dysuria, Frequency, Incontinence. Musculoskeletal Denies: Other (no focal changes). Skin Denies: Rash, Lesions, Jaundice, Bruising. Neurological Weakness. Denies: Numbness, Other (numbness and pain R foot, not ). Assessment and Plan Problem List 1. Lung cancer Plan No change--trying high dose solumedrol for 3-4 doses to see if pt. improves with this. 2. Pneumonia Status Acute Onset Date 11/08/16 Plan continue cefuroxime. 3. COPD (chronic obstructive pulmonary disease) Status Chronic Onset Date Unknown Plan pt. continues wkth marked dsypnea with activity. See if solumedrol helps. Consider blood transsfusion with 1 Unit. Recheck CXR 4. Anemia Status Resolved Onset Date Unknown Plan Repeat CBC 11/14/16. Consider blood transfusion if dropping or if persistently low.
[2016-11-13 10:58] VITALS: BP 110/50
[2016-11-13 14:21] VITALS: BP 96/52
[2016-11-13 18:11] VITALS: BP 117/54
[2016-11-13 22:20] VITALS: BP 112/64
[2016-11-14] VITALS (11 sets, daily range): BP systolic 85–160; BP diastolic 43–73
--- NOTE | 2016-11-14 00:21 | NUR ---
PATIENT STILL SOB WITH MINIMAL ACTIVITY. BACK TO BED WITH STANDY BY ASSIST, DE-SATTED DOWN TO THE 70'S/80'S EARLIER IN THE SHIFT. RECOVERS WITHIN A MINUTE OR SO. ALSO BECOMES TACHY IN THE 120'S-130'S WITH EXERTION WELL. PATIENT IS ON THE OXYMASK AT 8 LITERS AND NASAL CANNULA AT 6 LITERS. HOWEVER THE MOMENT THE PATIENT TAKES THE MASK OFF TO RE-ADJUST THE NASAL CANNULA PATIENT DE-SATS DOWN TO THE LOW 80'S. AT THIS TIME PATIENT IN BED WATCHING TV, SATURATION AT 88-92 PERCENT. DENIES ANY PROBLEMS WITH BREATHING, STATES HE FEELS GOOD. OCCASIONAL DRY COUGH IS PRESENT. HEART RATE IN THE 90'S RR AT 18. PATIENT WAS GIVEN ONE TAB OR PERCOCET EARLIER.
--- NOTE | 2016-11-14 01:11 | NUR ---
RT TO ROOM TO SET UP PATIENT ON THE CPAP MACHIME, AT 8 LITERS O2. DOWN TO 84 PERCENT, PLACED ON 10 LITERS OF O2. WILL MONITOR.
--- NOTE | 2016-11-14 01:15 | NUR ---
SATURATION AT 85 PERCENT ON 8 LITERS OF 02/CPAP, SATS DOWN TO 84. PLACED ON 10 LITERS O2, SATURATION AT 90 PERCENT.
--- NOTE | 2016-11-14 02:58 | NUR ---
AROUND 0230, PATIENT SAT UP AT THE EDGE OF THE BED TO USE URINAL. WAS ON THE CPAP AT PREVIOUS SETTINGS, AND WHEN PATIENT WHEN BACK TO BED HE STARTED GETTING SOB, AND DE-SATTING DOWN TO THE 60'S. PATIENT ALSO AT THAT POINT STARTED COMPLAINING OF CHEST PAIN 03/19 AND WAS GOING IN AND OUT OF SVT TO NSR 3-4 TIMES WITH HEART RATE HIGH AT 195. PATIENT PLACED AT THAT TIME BACK TO THE OXYMASK AT 15 LITERS AND THE CANNULA AT 9, PATIENT SLOWLY WAS UP TO 89-91 PERCENT. EKG WAS DONE, SHOWED NSR. PAGED DR MARTINES, RECIEVED ORDERS TO DRAW TROP/CPK AND DRAW LABS EARLY. BP AT 120/68. RR NOW AT 14. ALSO NITRO WAS GIVEN SUBLINGUALLY, CHEST PAIN DOWN TO /10. WILL MONITOR. HEART RATE DOWN TO 104 NOW; SINUS.
--- NOTE | 2016-11-14 03:14 | NUR ---
CHEST PAIN GONE, LABS DRAWN. MEDS GIVEN.
--- NOTE | 2016-11-14 07:43 | Progress Note ---
Subjective General Patient is a 71 y.o male with hx of lung CA, COPD, CAD, shortness of breath. Has been with extreme sob when he gets up to go to the bathroom. Has feeling very short of breath and then will get a fast HR. There have been some fast HR episodes that have not had SOB. Had some episodes of SOB over the weekend and chest pain and was ruled out for UT. CXR with continued pulm fibrosis. Physical Exam Vital Signs / I&Os Vital Signs Date Time Temp Pulse Resp B/P Pulse O2 O2 Flow FiO2 Ox Delivery Rate 11/14 0726 6.0 11/14 0720 97.5 103 22 110/58 92 NC/mask 7L 6.0 11/14 0238 101 21 160/68 94 Nasal 7.0 Cannula 11/14 0039 6.0 11/13 2220 97.5 114 21 112/64 89 Nasal 8.0 Cannula 11/13 2030 Nasal Cannula 11/13 1920 8.0 11/13 1811 97.9 120 22 117/54 91 Nasal 7.0 Cannula 11/13 1443 7.0 11/13 1421 98.2 106 22 96/52 96 Nasal 7.5 Cannula 11/13 1409 113 11/13 1058 97.7 110 24 110/50 97 BREATHING 6.0 TREATMENT 11/13 1055 8.0 11/13 0912 Mask 6.0 11/13 0740 15.0 I&O 11/14 0000 11/13 1600 11/13 0800 Intake Total 820 800 240 Output Total 300 875 525 Balance 520 -75 -285 General Appearance Alert, Cooperative HEENT Normal exam Lungs Normal exam, Clear to auscultation Cardiovascular Regular rate and rhythm, No murmurs, gallops, rubs Abdomen Soft, No tenderness Extremities No edema Skin No Rashes LAB Results Laboratory Tests 11/14 11/14 0257 UNK Chemistry Plasma Sodium (136 - 145 mmol/L) 144 Plasma Potassium (3.5 - 5.1 mmol/L) 4.2 Plasma Chloride (98 - 107 mmol/L) 103 CO2 (Enzymatic) (21 - 32 mmol/L) 35 BUN (7 - 18 mg/dL) 26 Creatinine (0.6 - 1.3 mg/dL) 0.7 Est GFR ( Amer) (mL/min) >60 Est GFR (Non-Af Amer) (mL/min) >60 Glucose (70 - 110 mg/dL) 172 Plasma Calcium (8.5 - 10.1 mg/dL) 9.0 Creatine Kinase (24 - 260 U/L) 27 Cancelled Troponin (0.00 - 1.5 ng/mL) <0.05 Cancelled Hematology WBC (4.5 - 11.5 K/uL) 3.1 RBC (4.50 - 5.90 M/uL) 3.25 Hgb (13.5 - 17.5 gm/dL) 8.8 Hct (41.0 - 53.0 %) 27.4 MCV (80 - 100 fL) 84 MCH (26 - 34 pg) 27 RDW (11.6 - 14.8 %) 19.4 Neut % (Auto) (50 - 75 %) 64.4 Lymph % (Auto) (25 - 40 %) 17.3 [place] % (Auto) (3 - 14 %) 18.1 Eos % (Auto) (0 - 4 %) 0 Baso % (Auto) (0 - 2 %) 0.2 Plt Count, EDTA (150 - 400 K/uL) 198 PUBS MCHC (31 - 37 g/dL) 32 Assessment and Plan Problem List 1. Lung cancer Plan Followed by heme/onc. Has improvement on CT chest 2. Pneumonia Status Acute Onset Date 11/08/16 Plan Is around the same on CXR with severe copd 3. CHF (congestive heart failure) Status Chronic Onset Date Unknown Plan Normal bnp when checked and not seeming to be the cause of his acute SOB. 4. COPD (chronic obstructive pulmonary disease) Status Chronic Onset Date Unknown Plan Severe lung dz and air trapping on the VQ scan. 5. Anemia Status Resolved Onset Date Unknown Plan Has anemia likely related to chemo. A little better today. 6. Supraventricular tachycardia Plan Episodes of SVT. Has been on dig and betablocker and bp is limiting his beta blockade.
--- NOTE | 2016-11-14 08:07 | DIAGNOSTIC IMAGING REPORT ---
PROCEDURE: XR CHEST 1 VIEW INDICATION: recheck pneumonia TECHNIQUE: Single view chest. 0501 hours COMPARISON: 11/10/2016 FINDINGS: Left-sided Mediport is accessed and in place, stable. Median sternotomy and post CABG changes are present. No new central vascular congestion. The lung volumes are low. Since of fibrosis throughout both lungs. Persistent left lower lobe alveolar opacity. Slight improvement in right mid lung infiltrate. No change to right apical mass. Stable osseous structures. IMPRESSION: 1. Slight improvement in right mid lung infiltrate. 2. Stable left lower lung pneumonia. 3. Diffuse fibrosis and right apical lung mass. 4. Stable cardiomediastinal contour.
--- NOTE | 2016-11-14 09:20 | NUR ---
Patient sitting in chair. Runs of SVT noted with any type of exertion. Sats 80's. NC 7L and oxy-mask 9L. Patient complaining of chest pain. Nitroglycerin tab given SL at 0912. Vital stable. HR up to 190's. MD notified and orders obtained. Metoprolol 2.5 mg given IV. EKG ordered and completed. RT will fax EKG to MD. Ativan 0.25 mg given for anxiety and air hunger. Patient encouraged to try and relax and take a few deep breathes. RT at bedside. Patient uses urinal independently. Patient encouraged to get back in bed. Patient transfers from wheelchair to bed 1 person SBA. Right AKA noted. Patient is steady with transfers. No other complaints at this time. Will continue to monitor.
--- NOTE | 2016-11-14 16:30 | NUR ---
NUTRITION FOLLOW UP NOTE: Pt po intake ~50-100% of meals. Pt continues on general diet, no plans for diet change at thist time, accuchecks have been 129-157. Pt with hx/o lung cancer and chemo, no sign wt changes noted or warranted. Rec add mighty shakes q meal to help optmize kcal and protein intake. RD to follow up prn/protocol.
--- NOTE | 2016-11-14 19:04 | NUR ---
Patient continues to have runs of SVT. Patient was getting up to BSC to have a BM and went into SVT and had a small run at 1634. Patient was encouraged to get back in bed at that time. 1638 SVT noted again and patient sats dropped. Patient was already placed on high flow NC by RT at 1540. Patient also at this time complained of chest pain. Nitroglycerin given x3 and was not effective. RT at bedside. MD notified and orders obtained. Metoprolol 5 mg given IV at 1700 which was only slightly effective. Patient finally back to bed. Ativan given at 1801. at bedside. Ativan effective. Patient complained of generalized pain 5/10. Percocet given Po. Port-a-cath left chest patent NS 21cc/hr TKO. Patient states chest pain is gone now. Miller will be placed. Patient is ccu status as of 1540. Patient tolerating PO intake. No other complaints at this time. Will continue to monitor.
--- NOTE | 2016-11-14 20:04 | NUR ---
Percocet 1 tab effective for pain management. Will continue to monitor.
[2016-11-15] VITALS (26 sets, daily range): BP systolic 87–133; BP diastolic 38–71
--- NOTE | 2016-11-15 01:57 | NUR ---
PATIENT RESTING, TURNED TO THE LEFT SIDE WITH A WEDGE, WAS GIVEN ATIVAN EARLIER PRN DUE TO PATIENT STATED HE WAS "JITTERY". WAKES UP TO VERBAL COMMAND. HIGH FLOW NASAL CANNULA IN PLACE WITH 70 FIO2 AND DOWN TO 30 LITERS. SATS REMAIN IN THE 90'S. RR A BETWEEN 18-24. PATIENT IS IN NSR WITH NO ECTOPY. ASLEEP IN ROOM WELL. IVF INFUSING AT TKO TO LEFT PORT. CALL LIGHT WITHIN REACH.
--- NOTE | 2016-11-15 02:28 | NUR ---
PATIENT DESATTING DOWNTO 86 WHEN WOKE UP AND TURNED. RT AT BEDSIDE, PLACED PATIENT BACK TO 35 LITERS AND 70 FIO2. SATS BACK UP TO 98.
--- NOTE | 2016-11-15 08:02 | Progress Note ---
Subjective General 71 y.o. male with lung CA, HTN, COPD, DM with worse lung status and SOB. Slept well last night. Using some ativan that helps. Had a mendoza catheter placed yesterday due to any activity seems to make him get a very fast HR and sob. Has anemia likely related to chemo. Physical Exam Vital Signs / I&Os Vital Signs Date Time Temp Pulse Resp B/P Pulse O2 O2 Flow FiO2 Ox Delivery Rate 11/15 0700 93.9 93 22 102/50 96 High Flow 35.0 05/09 0602 98.4 96 21 100/57 94 High Flow 35.0 05/09 0517 106 20 95/63 90 High Flow 35.0 05/09 0408 98 20 96/56 92 High Flow 35.0 05/09 0311 104 21 87/52 97 High Flow 35.0 05/09 0230 35.0 05/09 0213 98.1 102 20 94/54 95 High Flow 30.0 05/09 0116 30.0 05/09 0106 103 21 95/39 99 High Flow 30.0 05/09 0007 101 22 93/52 98 High Flow 30.0 05/08 2320 30.0 05/08 2303 103 22 93/43 96 High Flow 35.0 05/08 2238 98.6 05/08 2202 106 24 89/52 95 High Flow 70 05/08 2100 106 22 90/59 97 High Flow 05/08 2005 111 15 92/46 95 High Flow 70 05/08 2000 HIGH FLOW 35.0 N/C 05/08 1928 30.0 05/08 1916 114 25 85/49 93 High Flow 3.0 05/08 1808 109 21 98/51 100 High Flow 3.0 05/08 1806 97.9 05/08 1716 35.0 05/08 1650 195 23 105/73 83 High Flow 30.0 05/08 1553 30.0 05/08 1426 6.0 05/08 1422 98.1 97 25 113/58 92 NC/Mask 9L 7.0 05/08 1418 110 05/08 1106 98.1 96 18 97 NC/Mask 9L 7.0 05/08 0951 97.9 108 18 100/53 93 NC/Mask 9L 7.0 I&O 05/09 0000 05/08 1600 05/08 0800 Intake Total 450 1020 240 Output Total 695 1525 450 Balance -245 -505 -210 General Appearance Alert, Cooperative HEENT Normal exam Lungs coarse BS non focal, occasional crackle Cardiovascular Regular rate and rhythm Abdomen Soft, No tenderness Extremities No edema LAB Results Laboratory Tests 11/14 1745 Chemistry Troponin (0.00 - 1.5 ng/mL) <0.05 Assessment and Plan Problem List 1. Anemia Status Resolved Onset Date Unknown Plan Patient is with hx of symptomatic anemia at this time ? related to anemia with severe symptoms with activity even getting up to go to the BR. Has mendoza to prevent symptoms. Not getting better and would like to try a couple units of blood to see if helps him with is ability to function. 2. Supraventricular tachycardia Plan with SVT and on beta meche stable. 3. Diabetes mellitus Status Chronic Onset Date Unknown Plan Stable at this time. 4. CHF (congestive heart failure) Status Chronic Onset Date Unknown Plan No signs chf and normal bnp 5. COPD (chronic obstructive pulmonary disease) Status Chronic Onset Date Unknown Plan Has copd severe, he would like to work on d/c home. 6. Lung cancer Plan Has been wt full code and states that he would like to change to DNR/DNI.
--- NOTE | 2016-11-15 09:36 | NUR ---
Patient in bed at this time. Run of SVT noted HR 172. Denies chest pain at this time. Went to pull PRN metoprolol out and patient back to ST HR 102. Patient continues to have anxiety. Ativan 0.5 mg IV given. Patient desats to 70's during SVT runs. Continues on high flow O2. RT will be working with patient. SOB noted with exertion. BS 89 this AM. No sliding scale coverage needed. Patient tolerating good PO intake. Denies nausea. Patient states pain is ok at this time. Port-a-cath left chest patent NS 21cc/hr TKO. Patient Miller patent. Family at bedside. No other complaints at this time. Will continue to monitor.
--- NOTE | 2016-11-15 09:36 | NUR ---
Patient in bed at this time. Run of SVT noted HR 172. Denies chest pain at this time. Went to pull PRN metoprolol out and patient back to ST HR 102. Patient desats to 70's during SVT runs. Continues on high flow O2. RT will be working with patient. SOB noted with exertion. BS 89 this AM. No sliding scale coverage needed. Patient tolerating good PO intake. Percocet 1 tab given for pain mangement. Denies nausea. Port-a-cath left chest patent NS 21cc/hr TKO. Patient Miller patent. Family at bedside. No other complaints at this time. Will continue to monitor.
--- NOTE | 2016-11-15 10:36 | NUR ---
Patient resting. Family at bedside. Percocet effective for pain management. Will continue to monitor.
--- NOTE | 2016-11-15 10:36 | NUR ---
Patient resting at this time. Ativan effective. Will continue to monitor.
--- NOTE | 2016-11-15 14:07 | NUR ---
1st unit PRBC started. Will continue to monitor.
--- NOTE | 2016-11-15 14:30 | NUR ---
Anxiety noted. Ativan 0.5 mg given IV. Will continue to monitor.
--- NOTE | 2016-11-15 15:30 | NUR ---
Patient resting a this time. Ativan effective. Will continue to monitor.
--- NOTE | 2016-11-15 16:30 | NUR ---
Patient coughing and having a hard time breathing. Blood infusion rate decreased. MD notified. RT at bedside. Will continue to monitor.
--- NOTE | 2016-11-15 17:14 | NUR ---
Patient had run of SVT HR 156. Chest pain that resolved right away without nitro. RT at bedside. MD notified. Blood infusing at 60cc/hr. Family at bedside. LS fine rales/crackles noted in bases r>L. Wheezes noted in right upper lobe. Will continue to monitor.
--- NOTE | 2016-11-15 18:08 | NUR ---
1st unit PRBC completed. Will continue to monitor.
--- NOTE | 2016-11-15 18:13 | NUR ---
Lasix 20 mg given IV. Will continue to monitor.
--- NOTE | 2016-11-15 20:51 | NUR ---
8013-1708 Pt in the bed restless with coughing spells, sob, O2 sat mid80's, RT at the bed side giving Neb tx. RR 36/min, HR 130's-190's BP stable 120's. Neuro intact, cooperative, appropriate. HF Nasal O2 increased to 85% 35L. at the bedside. c/o chest pain from coughing. percocet po, Ativan po, Trazodone, Zofran IV, Metoprolol IV given. Good uop after Lasix IV dose from dayshift after 1unit of PRBC. no eduma present. Lungs basilar minimal crackles. In 30min settlesd to 95% then another coughing spells with O2 sat M80's which recovered back and forth. guarded condition. cont close monitoring HOB elevated sittting position now.
[2016-11-16] VITALS (25 sets, daily range): BP systolic 91–118; BP diastolic 45–64
--- NOTE | 2016-11-16 00:28 | NUR ---
0010 2nd unit of PRBC transfusion started 2354, informed pt re reaction s/sx to notify, assured pt providing close monitoring. VSS. O2 demands increased to 90% 35L HFNC earlier, and currently calm, no coughing, able to lie flat for position changes. "feel prettey comfortable." UOP over 1.5L after Lasix IV. Dr Cooper called and notified regarding the episode of SOB and required increased of O2 demand, received order of Lasix IV prn sob. Pt's and brother at the bed side supporting emotion. pt resting calm. HR 100's cont close monitoring. Percocet effective on chest pain due to coughing spells.
--- NOTE | 2016-11-16 05:00 | NUR ---
0500 shift summary A/Ox4 appropriate, cooperative, calm rested and slept. resp status guarded with HFNC titrated down to 80% 35L. O2 sat reamined 94% 2nd unit of PRBC transfusion completed w/o complication. Lasix 20mg IV given post tx. reponding well, excellent uop. Port-a-cath deaccessed and accessed per protocol (due to change) per JAILERCAROL Sanabria. Pain med PRN dose effective. and brother with pt over night very supportive. pt is calm and pleasant. "I guess i am doing better, ST-SR 90's-100's tachycardia improved. DNR status.
--- NOTE | 2016-11-16 07:00 | Progress Note ---
Subjective General 71 y.o male with DM, CAD, copd,pneumonia, lung CA, anemia, who was treated for pneumonia but not improving. Hct not terribly low at 27 but not improving with abx, O2, breathing treatments and prednisone. Now is post 2 units PRBC and is feeling a little better. States SOB OK, no acute issues per patient. Would like to have d/c home. Physical Exam Vital Signs / I&Os Vital Signs Date Time Temp Pulse Resp B/P Pulse O2 O2 Flow FiO2 Ox Delivery Rate 11/16 0610 97.9 95 16 103/53 100 High Flow 35.0 05/10 0515 99 18 94/56 99 High Flow 35.0 05/10 0439 35.0 05/10 0409 105 19 104/57 99 High Flow 35.0 05/10 0350 98.4 108 26 107/47 100 High Flow 35.0 05/10 0316 35.0 05/10 0314 106 25 98/59 100 High Flow 35.0 05/10 0214 98.2 105 20 91/55 100 High Flow 35.0 05/10 0121 35.0 05/10 0112 98.1 115 26 98/48 100 High Flow 35.0 05/10 0010 99.0 120 20 102/48 100 High Flow 35.0 05/09 2347 35.0 05/09 2346 98.2 123 22 97/55 100 High Flow 35.0 05/09 2310 120 23 99/43 98 High Flow 35.0 05/09 2302 98.2 05/09 2207 125 30 110/49 99 High Flow 35.0 05/09 2155 35.0 05/09 2112 137 24 126/63 87 High Flow 35.0 05/09 2030 35.0 05/09 2017 35.0 05/09 1999 High Flow 35.0 05/09 2000 138 30 129/71 86 High Flow 35.0 05/09 1913 107 26 112/51 98 High Flow 35.0 05/09 1808 98.4 125 26 115/54 98 High Flow 35.0 05/09 1744 35.0 05/09 1707 35.0 05/09 1705 123 28 106/61 94 High Flow 35.0 05/09 1601 98.2 111 25 107/60 94 High Flow 35.0 05/09 1552 35.0 05/09 1452 98.4 111 25 98/59 94 High Flow 35.0 05/ 1430 102 05/09 1415 98.4 105 25 133/66 90 High Flow 35.0 05/ 1348 97.9 102 18 106/43 96 High Flow 35.0 05/ 1307 35.0 05/ 1300 107 18 104/59 96 High Flow 35.0 05/09 1200 97.9 103 18 120/57 96 High Flow 35.0 05/ 1100 103 18 98/38 96 High Flow 35.0 05/ 1000 97.9 107 18 106/51 96 High Flow 35.0 05/ 0900 104 22 91/49 96 High Flow 35.0 05/ 0849 35.0 05/ 0800 High Flow 35.0 05/ 0800 109 24 101/41 96 High Flow 35.0 05/ 0700 93.9 93 22 102/50 96 High Flow 35.0 I&O 11/16 0000 05 1600 05/ 0800 Intake Total 830 1140 709 Output Total 1675 960 961 Balance -845 180 -252 General Appearance Alert, Cooperative HEENT Normal exam Lungs Normal air movement, coarse BS with crackles on L greater than right. Cardiovascular Regular rate and rhythm Abdomen Soft, No tenderness Extremities AKA on right LAB Results Laboratory Tests 11/16 0530 Chemistry Plasma Sodium Pending Plasma Potassium Pending Plasma Chloride Pending CO2 (Enzymatic) Pending BUN Pending Creatinine Pending Est GFR ( Amer) Pending Est GFR (Non-Af Amer) Pending Glucose Pending Plasma Calcium Pending Total Bilirubin Pending AST Pending ALT Pending Alkaline Phosphatase Pending Total Protein Pending Albumin Pending Hematology WBC (4.5 - 11.5 K/uL) 5.0 RBC (4.50 - 5.90 M/uL) 4.13 Hgb (13.5 - 17.5 gm/dL) 11.4 Hct (41.0 - 53.0 %) 35.0 MCV (80 - 100 fL) 85 MCH (26 - 34 pg) 28 RDW (11.6 - 14.8 %) 19.0 Neut % (Auto) (50 - 75 %) Pending Lymph % (Auto) (25 - 40 %) Pending [place]on % (Auto) (3 - 14 %) Pending Band Neutrophils % (0 - 8 %) Pending Plt Count, EDTA (150 - 400 K/uL) 191 PUBS MCHC (31 - 37 g/dL) 32 Assessment and Plan Problem List 1. Lung cancer Plan Is getting chemo with heme/onc. 2. Pneumonia Status Acute Onset Date 11/08/16 Plan Improved. 3. CHF (congestive heart failure) Status Chronic Onset Date Unknown Plan Has some crackles post blood transfusion and will try a little more lasix this am. 4. Diabetes mellitus Status Chronic Onset Date Unknown 5. Supraventricular tachycardia Plan On metoprolol and see how he does with wean on O2 today post transfusion. 6. Anemia Status Resolved Onset Date Unknown Plan Is better post transfusion hct 35 7. COPD (chronic obstructive pulmonary disease) Status Chronic Onset Date Unknown Plan Severe copd and air trapping that is likely the baseline.
--- NOTE | 2016-11-16 09:36 | NUR ---
RT TO ROOM AFTER BREAKFAST, PATIENTNOW ON 35 LITERS AND 50 PERCENT FIO2 ON THE HGH FLOW NASAL CANNULA. PATIENT ASLEEP AT THIS TIME, SATS ARE AT 100 PERCENT. SINUS TACHY IN THE LOW 100'S. NO PAIN AT THIS TIME.
--- NOTE | 2016-11-16 13:17 | NUR ---
PATIENT WAS DOING WELL ON THE 35 LITERS HIGH FLOW WITH 50 FIO2. PATIENT HAD A COUGHING SPELL AND WAS DE-SATTING DOWN TO THE 70'S.
--- NOTE | 2016-11-16 13:59 | NUR ---
ALSO SPOKE TO EMIGDIO EARLIER REGARDING HOME O2, THEY STATED THEY CAN DO NC/OXYMASK/NON-REBREATHER BUT MAXIMUM OF 9 LITERS. WILL MONITOR, DISCUSSED WITH RT.
--- NOTE | 2016-11-16 14:18 | NUR ---
ATTEMPTED TO PLACE PATIENT ON OXYMASK AT 9 LITERS, WITHIN COUPLE MINUTES PATIENT WAS DOWN TO THE MID 70'S, GAVE PATIENT ATIVAN THIS USUALLY RELAXES HIS BREATHING AND INCREASES THE SATURATION. HAD NO EFFECT, RT ALSO AT BEDSIDE AND GAVE PATIENT A BREATHING TREATMENT. DURING THE BREATHING TREATMENT, SATURATION DID INCREASE TO 90 PERCENT ON THE 9 LITERS OXYMASK, AFTER BREATHING TREATMENT WAS DONE, KEPT PATIENT ON THE 9 LITERS OXYMASK AND PATIENT WAS ABLE TO KEEP HIS SATURATION AT 86-87 PERCENT FOR A FEW MINUTES BUT THEN STARTED TRENDING TO LOW 80'S THEN 79 PERCENT. PLACED PATIENT BACK ON THE HIGH-FLOW NASAL CANNULA AT 35 LITERS AND 70 PERCENT FIO2. CALLED AND NOTIFIED DR QUEZADA OF THIS. DR QUEZADA STATES HE WILL BE CALLING A FRAUD EXAMINER.
--- NOTE | 2016-11-16 15:54 | NUR ---
ULTRASOUND UNABLE TO DO ECHO TODAY.
--- NOTE | 2016-11-16 18:30 | DIAGNOSTIC IMAGING REPORT ---
PROCEDURE: CTA THORAX WITH CONTRAST INDICATION: Severe pneumonia. Shortness of breath. TECHNIQUE: 72 ml of Isovue 370 was injected intravenously and axial images were obtained of the entire thorax with 3D sagittal and coronal MIP reconstructions. COMPARISON: Compared to chest x-ray (11/14/2016), nuclear medicine lung scan (11/11/2016) and CT thorax (11/10/2016). FINDINGS: Mild generalized worsening in moderate to severe interstitial and alveolar parenchymal changes compatible with pneumonia and chronic lung disease. No change in right upper lung mass. Pulmonary vessels are normal and there is no evidence of pulmonary embolus. Mild mediastinal adenopathy. Status post coronary artery bypass graft. Heart is of normal size. Mild degenerative change of the thoracic spine. IMPRESSION: 1. Mild worsening in severe acute and chronic interstitial and alveolar changes throughout the lungs. 2. Mild mediastinal adenopathy. 3. No evidence of pulmonary embolus. 4. Status post coronary artery bypass graft. 5. Findings called to the floor and to Dr. Cooper. All CT scans at this facility use dose modulation, iterative reconstruction, and/or weight-based dosing when appropriate to reduce radiation dose to as low as reasonably achievable.
--- NOTE | 2016-11-16 19:03 | NUR ---
TAKEN PATIENT DOWN TO CT WITH RT AT BEDSIDE AND SUPERVISOR COIL WINDING. PATIENT REMAINED ON MONITOR. TRANSPORTED ON 15 LITERS NON REBREATHER
--- NOTE | 2016-11-16 20:58 | NUR ---
PT RESTING IN BED. ALERT AND ORIENTED X3. NO COMPLAINTS OF PAIN, NO COMPLAINTS OF SOB. REPOSITIONED IN BED. PT IS ON HIGH FLOW NASAL CANULA - 100%, 35 LITERS. O2 SATS AT 91%. HEART RATE IN THE 120'S - SINUS TACH NOTED - METORPOLOL PO GIVEN. BLOOD PRESSURE AT 115/59. PORT A CATH UNREMARKABLE - BLOOD DRAW EFFECTIVE FOR A BNP PER DR QUEZADA. AT BEDSIDE. CALL LIGHT WITHIN REACH. NO REQUESTS AT THIS TIME.
[2016-11-17] VITALS (24 sets, daily range): BP systolic 97–122; BP diastolic 46–70
--- NOTE | 2016-11-17 06:43 | NUR ---
HIGH FLOW NASAL CANULA AT 95% AND 40 LITERS, O2 SATS AT 94%. NO COMPLAINTS AT THIS TIME. HEART RATE AT 111. PT REPOSITIONED THROUGH OUT THE NIGHT. NO REQUESTS AT THIS TIME.
--- NOTE | 2016-11-17 07:56 | Progress Note ---
Subjective General Patient is a 71 y.o. male with lung CA, severe COPD, hx of CHF, DM, CAD who presented with pneumonia, copd and has been worse. Has been with continued severe SOB. Has had high flow O2. Physical Exam Vital Signs / I&Os Vital Signs Date Time Temp Pulse Resp B/P Pulse O2 O2 Flow FiO2 Ox Delivery Rate 11/17 0700 107 19 110/46 100 HIGH FLOW 40.0 05/11 0616 98.4 107 25 101/59 96 HIGH FLOW 40.0 05/11 0512 108 22 106/60 92 HIGH FLOW 40.0 05/11 0414 106 23 111/61 91 HIGH FLOW 40.0 05/11 0330 106 05/11 0312 116 27 108/52 93 HIGH FLOW 40.0 05/11 0216 40.0 05/11 0210 98.8 115 21 112/67 93 HIGH FLOW 40.0 05/11 0107 105 24 110/60 96 HIGH FLOW 40.0 05/11 0012 108 22 106/53 93 HIGH FLOW 40.0 05/10 2312 101 24 108/50 96 HIGH FLOW 40.0 05/10 2225 99.7 05/10 2211 117 25 100/59 95 HIGH FLOW 40.0 05/10 2100 125 22 117/55 90 HIGH FLOW 40.0 05/10 2039 HIGH FLOW 100 05/10 2011 122 05/10 2000 119 24 93/55 91 HIGH FLOW 40.0 05/10 1904 118 22 118/64 94 HIGH FLOW 40.0 05/10 1858 40.0 05/10 1810 98.1 117 23 116/57 90 35.0 05/10 1756 15.0 05/10 1703 127 21 103/57 82 15.0 Non-Rebreather Mask 05/10 1605 121 22 102/54 100 High Flow 35.0 05/10 1511 117 21 112/45 90 High Flow 35.0 05/10 1400 98.4 115 22 101/46 92 High Flow 9.0 05/10 1353 9.0 05/10 1323 111 05/10 1307 106 23 100/55 91 High Flow 15.0 05/10 1158 109 16 97/61 100 High Flow 15.0 05/10 1100 98.4 112 16 99/60 100 High Flow 15.0 05/10 1000 108 19 106/56 100 High Flow 15.0 05/10 0900 120 19 105/50 100 High Flow 15.0 11/16 0852 15.0 11/16 0800 107 19 114/60 100 High Flow 35.0 11/16 0755 35.0 I&O 11/17 0000 11/16 1600 11/16 0800 Intake Total 600 360 870 Output Total 217 864 2105 Balance 150 -460 -441 General Appearance Alert, Oriented X3, Cooperative HEENT Normal exam Lungs coarse BS with no sig wheezes Cardiovascular Regular rate and rhythm, No murmurs, gallops, rubs Abdomen Soft Extremities No edema LAB Results Laboratory Tests 11/16 2034 Chemistry B-Natriuretic Peptide (5 - 100 pg/ml) 287 Assessment and Plan Problem List 1. Lung cancer Plan hx of lung ca and on chemo but lungs worse at this time. 2. Pneumonia Status Acute Onset Date 11/08/16 Plan Is post treatment and seems adequate on this end. 3. CHF (congestive heart failure) Status Chronic Onset Date Unknown Plan Has minimal elevation in bnp and echo today. Will increase on lasix a little 4. COPD (chronic obstructive pulmonary disease) Status Chronic Onset Date Unknown Plan Has severe end stage copd and we have discussed plan for today. If his echo does not show anything acute then will change to 9 L max high flowO2 and then if struggling work on comfort. He would like to have d/c home in a few days if he hasn't and possible d/c with hospice if he is still struggling. Will continue steroids, abx, breathing treatment, O2 9L max, stop the tele and ok O2 sats still. Morphine and ativan for comfort at this time. Will give a little lasix for mild chf at this time. 5. Anemia Status Resolved Onset Date Unknown 6. Supraventricular tachycardia Plan Has been with no acute issues, still fast HR at times. 7. Diabetes mellitus Status Chronic Onset Date Unknown Plan Is with minimal elevation in BS stop accuchecks.
--- NOTE | 2016-11-17 12:43 | NUR ---
NUTRITION NOTE: Pt PO intake ~25-100% at meals last few days; varies. Mighty shakes in place to help support kcals and protein. Per MD notes hospice care is being explored at this time. RD to follow up prn.
--- NOTE | 2016-11-17 12:51 | DIAGNOSTIC IMAGING REPORT ---
REFERRING PHYSICIAN/PROVIDER: Dr. Cooper CONSULTING PRESS OPERATOR ASSISTANT: Chente Leong MD PROCEDURE: 2D echo, M-mode and complete color and flow Doppler interrogation TECHNICAL QUALITY: Technically difficult with poor endocardial definition INDICATION: sob hx of chf INTERPRETATIONS: CHAMBERS: LEFT ATRIUM: Not seen well, but appears normal in size. LEFT VENTRICLE: Concentric left ventricular hypertrophy. Normal LV size. Hyperdynamic systolic function, EF visually estimated at 70-75%. D-shaped interventricular septum consistent with pressure overload. RIGHT ATRIUM: Not seen well RIGHT VENTRICLE: Not seen well, but appears dilated. VALVES: All valves nonrheumatic unless otherwise indicated. AORTIC VALVE: Individual aortic valve leaflets not seen well. MITRAL VALVE: Trace mitral regurgitation. TRICUSPID VALVE: Mild tricuspid regurgitation. RVSP 87 mmHg. PULMONIC VALVE: Not seen well. HEMODYNAMICS: CVP 3 mmHg. IMPRESSION: 1. Technically difficult study with limited views and poor endocardial definition. 2. Underlying rhythm is sinus tachycardia with frequent ectopy. 3. Concentric left ventricular hypertrophy with normal LV size and hyperdynamic systolic function, EF visually estimated to be 70-75%. 4. Severe pulmonary hypertension with estimated pulmonary artery systolic pressure of 87 mmHg. 5. Right ventricle is not seen well, but appears dilated.
--- NOTE | 2016-11-17 13:23 | NUR ---
SPOKE TO DR QUEZADA THIS AM REGARDING THE PLAN OF CARE, ECHO WAS DONE THIS AM AND WAITING FOR THE RESULTS OF THAT TO NOTIFY DR QUEZADA OF. GIVING PATIENT PRN ATIVAN AND PRN MOPRHINE FOR PAIN/AIR HUNGER. PATIENT APPEARS COMFORTABLE SATS ARE AROUND 90 PERCENT, ON THE HIGH FLOW UNTIL RESULTS ARE IN PER DOCTOR DAMIEN. NOT AT BEDSIDE YET. TELE SHOWS HEART RATE NOW OF LOW 100'S, METORPOLOL 5MG IV PUSH WAS GIVEN EARLIER IN THE SHIFT FOR HEART RATE IN THE 120'S TO 130'S. CALL LIGHT WITHIN REACH WILL MONITOR.
--- NOTE | 2016-11-17 13:51 | NUR ---
PAGED DR QUEZADA REGARDING THE ECHO, AWAITING CALL BACK.
--- NOTE | 2016-11-17 14:01 | NUR ---
READ THE ECHO RESULTS TO DR QUEZADA AND TRANSFERRED DR QUEZADA TO SPEAK TO THE ON THE PHONE.
--- NOTE | 2016-11-17 16:56 | NUR ---
STARTED TO TITRATE DOWN THE OXYGEN AT 1530, PATIENT WAS PUT DOWN TO 70 PERCENT FIO2 AND 40 LITERS, AND PATIENT DE-SATTED TO 79 PERCENT AND CALLED AND COMPLAINED OF MODERATE SHORTNESS OF BREATH AND ASKED TO TURN HIS "AIR" UP. PATIENT WAS TURNED BACK UP TO 90 FI02, AND GIVEN MORPHINE AND ATIVAN IV AT THE SAME TIME PRN AIR HUNGER. PATIENT REMAINED IN THE 90'S, AND WAS TITRATED DOWN TO 80 PERCENT FIO2 AND 35 LITERS, DID WELL. PATIENT NOW TITRATED DO TO 70 PERCENT FIO2 AND 35 LITERS AT 1630. PATIENT APPEARS COMFORTABLE AND SLEEPING. SATURATIONS AT 89 PERCENT.
--- NOTE | 2016-11-17 17:06 | NUR ---
PATIENT GIVEN ATIVAN AND TITRATED OXYGEN DOWN TO 60 FIO2 AND 30 LITERS. PATIENT ASLEEP, SATURATIONS AROUND 85 PERCENT.
--- NOTE | 2016-11-17 19:02 | NUR ---
DR QUEZADA CALLED THIS RN AT 1840 WITH CHANGE OF PLANS AFTER HE SPOKE TO THE ONCOLOGY DOCTOR. TO KEEP ON HIGH FLOW O2 AND RECIEVED NEW MED ORDERS.
[2016-11-18] VITALS (24 sets, daily range): BP systolic 100–143; BP diastolic 42–76
--- NOTE | 2016-11-18 07:43 | Progress Note ---
Subjective General 71 y.eleazar starks hx of CAD,DM, Lung CA, COPD, pulm htn on echo. Was doing the same yesterday overall. Echo with severe pulm htn. No fevers. No better. I discussed case with Dr. Beverly and he suggests that we increase on the prednisone(solumedrol) as this may be chemo related pneumonitis. Would like to have him have the pred for 5-7 days and see if we improve to point we can wean off of high flow. If not then consider comfort measures and wean down at that time. Physical Exam Vital Signs / I&Os Vital Signs Date Time Temp Pulse Resp B/P Pulse O2 O2 Flow FiO2 Ox Delivery Rate 11/18 0623 96.4 114 29 118/63 85 HIGH FLOW 35.0 05/ 0503 97.5 86 14 116/76 90 HIGH FLOW 35.0 05/12 0425 35.0 05/12 0410 97.5 90 18 125/72 89 HIGH FLOW 35.0 05/12 0358 97.5 94 18 95 HIGH FLOW 35.0 05/12 0326 97.2 91 21 109/57 93 HIGH FLOW 35.0 05/12 0210 97.5 85 18 118/54 93 HIGH FLOW 35.0 05/12 0116 87 16 100/62 90 HIGH FLOW 35.0 05/12 0024 88 16 114/58 92 HIGH FLOW 35.0 05/11 2317 35.0 05/11 2305 97.9 87 16 106/64 93 HIGH FLOW 35.0 05/11 2204 108 21 109/59 90 HIGH FLOW 35.0 05/11 2116 111 16 112/70 86 HIGH FLOW 35.0 05/11 2006 102 18 102/58 89 HIGH FLOW 35.0 05/11 1999 HIGH FLOW 35.0 05/11 1901 101 18 102/60 90 HIGH FLOW 35.0 05/11 1900 30.0 05/11 1712 108 17 114/62 89 HIGH FLOW 35.0 05/11 1709 30.0 05/11 1701 35.0 05/11 1614 104 22 118/66 95 HIGH FLOW 40.0 05/11 1500 110 26 116/64 96 HIGH FLOW 40.0 05/11 1419 108 05/11 1406 108 26 115/56 94 HIGH FLOW 40.0 05/11 1340 40.0 05/11 1318 98.1 05/11 1300 104 24 114/66 92 HIGH FLOW 40.0 11/17 1213 104 29 108/56 92 HIGH FLOW 40.0 11/17 1100 108 24 97/58 92 HIGH FLOW 40.0 11/17 1000 109 24 122/65 91 HIGH FLOW 40.0 11/17 0919 120 25 107/56 90 HIGH FLOW 40.0 11/17 0800 112 25 104/57 92 HIGH FLOW 40.0 11/17 0748 40.0 I&O 11/18 0000 11/17 1600 11/17 0800 Intake Total 797 440 5780 Output Total 541 230 3812 Balance -624 310 16 General Appearance Alert, Cooperative Lungs coarse BS, good air movement non focal Cardiovascular Regular rate and rhythm, No murmurs, gallops, rubs Abdomen Soft, No tenderness Extremities No edema, R AKA Assessment and Plan Problem List 1. Lung cancer Plan Has been on chemo ? pneumonitis related to this. Dr. Beverly likely to stop by Monday. Keep on steroids and prophy for thrush... hx of thrush but was taking the symbicort 5-6 x per day... as thought it helped. 2. Pneumonia Status Acute Onset Date 11/08/16 Plan Has been treated and will stop on abx at this time. 3. COPD (chronic obstructive pulmonary disease) Status Chronic Onset Date Unknown Plan Severe copd baseline, pulm htn on echo. Will see if improves with the steroids. 4. CHF (congestive heart failure) Status Chronic Onset Date Unknown Plan Seeming better at this time. 5. Diabetes mellitus Status Chronic Onset Date Unknown Plan Monitoring with ISS on the steroids. 6. Anemia Status Resolved Onset Date Unknown Plan Better post transfusion. 7. Tachycardia Plan Improved today
--- NOTE | 2016-11-18 15:01 | NUR ---
Patient alert and oriented throughout shift. Oxygen saturation began to drop and patient became tachycardic. Patient was experiencing chest pain /. Gave metoprolol as ordered, gave morphine as ordered, gave nitro as ordered. Called Dr. Cooper and notified of the incident. Metoprolol, morphine, and nitro were effective to eliminate patient's chest pain and to lower the patient's heart rate. Will continue to monitor patient.
--- NOTE | 2016-11-18 22:45 | NUR ---
PT'S HR UP TO 180-210. 9/10 CHEST PAIN RAIDIATING DOWN LEFT SHOULDER AND ARM. PT SOB ADN FLUSHED. 2MG IV MORPHINE GIVEN 5MG IV METOPROLOL GIVEN. HR CAME DOWN TO 140 BRIEFLY, THEN BACK UP TO 190'S SUSTAINED FOR GREATER THAN [address] QUEZADA NOTIFIED. SL NITRO X1, ANOTHER 2MG MORPHINE GIVEN. PT REPORTS CHEST PAIN DOWN TO 2/10 WITH NO PAIN IN HIS LEFT ARM OR SHOULDER. PT REMAINS SOB. HI FLOW NC AT 35L, 80% O2 SAT 88-91% AFTER 5MIN, HR 101 NSR. CHEST PAIN REMAINS AT 2/10. WILL CONTINUE TO MONITOR. ORDERS RECEIVED TO REPEAT 5MG IV METOPROPLOL IF HR IS GREATER THAN 130 AND CHEST PAIN PERSISTS. PER MD ORDERS, IF CHEST PAIN PERSISTS- OBTAIN EKG AND CARDIAC [facility]
[2016-11-19] VITALS (22 sets, daily range): BP systolic 100–152; BP diastolic 46–76
--- NOTE | 2016-11-19 02:21 | NUR ---
PT HAD A LONG COUGHING EPISODE WHICH RESULTED IN A DECREASE OF HIS O2 SAT TO 83%. HI DANYELLE NC WAS INCREASE FROM 35L TO 40L, 80%. AFTER 30MIN, PT RECOVERED O2 SAT IS NOW 92%. I HAD LONG TALK WITH PATIENT AND HIS REGARDING THE HI FLOW NC. THEY WERE INFORMED OF THE MAXIMUM O2 (40L) AND 100% (CURRENTLY AT 80%). THEY WERE INFORMED THAT THEY WERE CLOSE TO THE MAX DOSE OF 02 ON THIS MACHINE. THEY VERBALIZED THEIR UNDERSTANDING. PT'S ASKED MORE QUESTIONS ABOUT AND DYING WELL THE IDEA OF THE PT GOING HOME. PT WAS TOLD, AT THIS TIME, GOING HOME IS NOT POSSIBLE IF HE NEEDS 40L OF 02 TO STAY COMFORTABLE. PT'S PROCESSED MUCH OF WHAT I SAID AND THEN STATED THAT THE PT WOULD LIKE TO BE CREMATED, PT'S IS VISIBLY UPSET AND STARTING TO COME TERMS WITH THE TERMINAL SITUATION.
--- NOTE | 2016-11-19 13:15 | Progress Note ---
Subjective General Patient feeling mildly improved today. No nausea, vomitting. No stool in several days. Eating well. Breathing maybe very mildly improved. Physical Exam Vital Signs / I&Os Vital Signs Date Time Temp Pulse Resp B/P Pulse O2 O2 Flow FiO2 Ox Delivery Rate 11/19 1142 36.4 11/19 1140 101 22 120/61 94 HIGH FLOW 40.0 NASAL CANULA 11/19 0940 188 25 118/53 95 HIGH FLOW 40.0 NASAL CANULA 11/19 0828 97 18 124/66 91 HIGH FLOW 40.0 NASAL CANULA 11/19 0818 40.0 11/19 0730 HIGH FLOW 40.0 NASAL CANULA 11/19 0729 92 15 118/62 95 HIGH FLOW 40.0 NASAL CANULA 11/19 0617 89 23 112/60 94 HIGH FLOW 40.0 NASAL CANULA 11/19 0527 86 15 112/52 95 HIGH FLOW 40.0 NASAL CANULA 11/19 0435 86 16 110/56 96 HIGH FLOW 40.0 NASAL CANULA 11/19 0342 40.0 11/19 0324 94 17 104/46 95 HIGH FLOW 40.0 NASAL CANULA 11/19 0220 36.4 96 15 112/55 93 HIGH FLOW 40.0 NASAL CANULA 11/19 0131 95 22 114/63 94 HIGH FLOW 40.0 NASAL CANULA 11/19 0128 40.0 11/19 0023 110 20 123/61 94 HIGH FLOW 40.0 NASAL CANULA 11/18 2351 40.0 11/18 2325 36.9 117 29 113/62 92 HIGH FLOW 45.0 NASAL CANULA 11/18 2234 36.5 177 24 120/66 94 HIGH FLOW 35.0 NASAL CANULA / 2140 116 29 117/56 85 HIGH FLOW 35.0 NASAL CANULA / 2030 HIGH FLOW 40.0 NASAL CANULA 05/ 2022 112 20 143/65 87 HIGH FLOW 35.0 NASAL CANULA 05/ 1927 35.0 05/ 1923 122 15 141/69 87 HIGH FLOW 35.0 NASAL CANULA 05/ 1836 36.6 119 24 124/70 82 HIGH FLOW 35.0 NASAL CANULA 05/12 1718 117 16 135/60 94 HIGH FLOW 35.0 NASAL CANULA 05/ 1613 112 21 138/66 85 HIGH FLOW 35.0 NASAL CANULA 05/12 1526 107 29 119/42 83 HIGH FLOW 35.0 NASAL CANULA 11/18 1430 109 11/18 1425 35.0 11/18 1405 105 21 121/60 86 HIGH FLOW 35.0 11/18 1315 36.6 108 28 128/66 88 HIGH FLOW 35.0 I&O 11/19 0000 11/18 1600 11/18 0800 Intake Total 999 1200 640 Output Total 817 265 513 Balance 182 935 127 General Appearance Alert, Oriented X3, Cooperative Lungs Clear to auscultation Cardiovascular Regular rate and rhythm, Normal S1 and S2, No murmurs, gallops, rubs Abdomen Normal bowel sounds, Soft, No tenderness Extremities Mild edema in LLE. Assessment and Plan Problem List 1. Pneumonitis Plan Likely 2/2 steroids. On high dose steroids. If no improvement over the next several days, will likely discuss hospice. 2. Lung cancer Plan Seeing oncology. 3. CHF (congestive heart failure) Status Chronic Onset Date Unknown Plan Stable. Dig level ordered. 4. COPD (chronic obstructive pulmonary disease) Status Chronic Onset Date Unknown Plan Stable 5. Diabetes mellitus Status Chronic Onset Date Unknown Plan Elevated today. Likely 2/2 steroids. Will change to diabetic diet. 6. Anemia Status Resolved Onset Date Unknown Plan Restart ferrous sulfate. 7. Supraventricular tachycardia Plan Intermittent. Will increase metoprolol to try to prevent episodes. 8. Constipation Plan Will schedule colace and add miralax prn.
--- NOTE | 2016-11-19 16:28 | NUR ---
Patient has been alert and oriented throughout shift. Gave pain medication and ativan as ordered. No complaints of nausea or vomiting. Offered tool smith service and patient accepted. Security Police Officer came to talk to patient and his and spent a couple of hours with them. Patient had another episode of svt with heart rate sustained at over 185 bpm. Gave metoprolol, morphine, and nitro and that was successful in converting patient back to normal sinus rhythm and relieving his chest pain. Advised Dr. Link of the event and orders received. Started patient on bowel protocol.
--- NOTE | 2016-11-19 23:28 | NUR ---
PT RESTING IN BED, NO DISTRESS NOTED. PT A&O, COOPERATIVE WITH CARE. PT IS ON HIGH FLOW O2 @ 40 LPM 80% WITH O2 SAT OF 92%. PT DESATS WITH COUGHING AND MOVEMENT DOWN TO THE MID 80'S. BP 118/66, HR 83, NSR NOTED. PT HAD XL FORMED BM THIS EVENING. PT GIVEN IV ATIVAN AND MORPHINE FOR PAIN/ ANXIETY. HS ACCU CHECK WAS 151, 1 UNIT OF INSULIN GIVEN ALONG WITH HS SNACK. PT'S IN ROOM. NO OTHER CONERNS AT THIS TIME. BED IN LOWEST POSITION CALL LIGHT IN REACH, WCTM.
[2016-11-20] VITALS (20 sets, daily range): BP systolic 110–146; BP diastolic 54–79
--- NOTE | 2016-11-20 04:20 | NUR ---
DR. LORENZANA IN TO SEE PT THIS AM. NO NEW EPISODES OF CHEST PAIN/ SVT NOTED FOR SHIFT. MD INFORMED THAT PATIENT HAS 2 NOSE BLEEDS OVERNIGHT. PT CURRENTLY SLEEPING. NO NEW ORDERS GIVEN. BED IN LOWEST POSITION, CALL LIGHT IN REACH, WCTM.
--- NOTE | 2016-11-20 16:22 | NUR ---
Patient is alert and oriented. Stated "I feel like it's getting smaller in there." Patient is becoming more intolerant of movement (becomes very short of breath), but is still able to help. Gave morphine and ativan as ordered, no complaints of nausea or vomiting. Will continue to monitor patient.
--- NOTE | 2016-11-20 23:53 | Progress Note ---
Subjective General Patient sleeping peacefully. No nausea, vomitting, diarrhea, constipation. No abd pain. No chest pain. Per nursing, no more SVT episodes since increasing metoprolol yesterday. Physical Exam Vital Signs / I&Os Vital Signs Date Time Temp Pulse Resp B/P Pulse O2 O2 Flow FiO2 Ox Delivery Rate 11/20 2202 36.6 87 18 123/63 93 HIGH FLOW 30.0 NASAL CANNULA 11/20 2117 36.7 92 22 138/71 88 HIGH FLOW 30.0 NASAL CANNULA 11/21 2011 30.0 11/21 2003 36.3 99 26 119/58 90 HIGH FLOW 35.0 NASAL CANNULA 11/20 1957 HIGH FLOW 35.0 NASAL CANNULA 11/20 191 36.4 100 27 133/62 94 HIGH FLOW 35.0 NASAL CANNULA 11/20 1813 36.5 103 28 118/59 90 HIGH FLOW 35.0 NASAL CANNULA 11/20 1711 99 28 128/54 91 HIGH FLOW 35.0 NASAL CANNULA 11/20 1615 36.9 97 23 146/72 90 HIGH FLOW 35.0 NASAL CANNULA 11/20 1515 36.4 95 25 127/66 91 HIGH FLOW 35.0 NASAL CANNULA 11/20 1423 101 11/20 1408 35.0 11/20 1309 36.6 11/20 1200 93 22 135/66 90 HIGH FLOW NASAL CANNULA 11/20 1100 93 126/59 11/20 1000 95 25 118/55 89 HIGH FLOW 40.0 NASAL CANNULA 11/20 0830 HIGH FLOW 40.0 NASAL CANNULA 11/20 0825 96 31 133/70 91 HIGH FLOW 40.0 NASAL CANNULA 11/20 0811 40.0 11/20 0732 81 16 121/58 96 HIGH FLOW 40.0 NASAL CANNULA 11/20 0620 36.4 84 20 117/62 97 HIGH FLOW 40.0 NASAL CANNULA 11/20 0419 36.4 75 16 115/68 93 HIGH FLOW 40.0 NASAL CANNULA 11/20 0324 76 14 115/59 92 HIGH FLOW 40.0 NASAL CANNULA 11/20 0218 78 18 125/73 92 HIGH FLOW 40.0 NASAL CANNULA 11/20 0117 36.6 83 19 117/64 95 HIGH FLOW 40.0 NASAL CANNULA 11/20 0021 36.4 79 24 110/59 94 HIGH FLOW 40.0 NASAL CANNULA I&O 11/20 0000 11/19 1600 11/19 0800 Intake Total 584 680 838 Output Total 467 3705 968 Balance 121 -655 -130 General Appearance Alert, Cooperative, No acute distress Lungs Clear to auscultation Cardiovascular Regular rate and rhythm, Normal S1 and S2, No murmurs, gallops, rubs Abdomen Normal bowel sounds, Soft, No tenderness Extremities No edema Assessment and Plan Problem List 1. Pneumonitis Plan Likely 2/2 chemo. On high dose steroids. 2. COPD (chronic obstructive pulmonary disease) Status Chronic Onset Date Unknown Plan Stable. 3. Lung cancer Plan Seeing oncology. 4. Constipation Plan On bowel protocol. 5. Supraventricular tachycardia Plan No further episodes since increasing metoprolol yesterday. 6. Diabetes mellitus Status Chronic Onset Date Unknown Plan Changed to diabetic diet yesterday. Blood sugars improved today. Will monitor for 24 hrs before adjusting insulin. 7. Anemia Status Resolved Onset Date Unknown Plan On iron.
[2016-11-21] VITALS (10 sets, daily range): BP systolic 113–147; BP diastolic 56–84
--- NOTE | 2016-11-21 05:08 | NUR ---
PT RESTED WELL OVERNIGHT WITHOUT ANY COMPLAINTS OF CHEST PAIN. PT C/O SOB AND NEEDED PRN MORPHINE AND ATIVAN. NO EPISODES OF SVT NOTED. VSS. URINE OUTPUT ADEQUATE OVER SHIFT.PT IS ON HIGH FLOW O2 AT 35 LITERS/ 80%. HS ACCU CHECK WAS 174, RECHECKED AT 0300 AND IT WAS 170. PT'S IN ROOM. NO OTHER QUESTIONS OR CONERNS AT THIS TIME. BED IN LOWEST POSITION, CALL LIGHT IN REACH WCTM.
--- NOTE | 2016-11-21 07:34 | Progress Note ---
Subjective General 71 y.o. male with hx of CAD, CHF, COPD, Lung CA with admit that has severely low O2 and ? chemo induced pneumonitis. Is doing around the same. Is with an elevation of the amount of O2 that is needed over the weekend. BP that is going up some at this time. No fevers, has some chest pain that goes up / down with low O2 sat. Physical Exam Vital Signs / I&Os Vital Signs Date Time Temp Pulse Resp B/P Pulse O2 O2 Flow FiO2 Ox Delivery Rate 11/21 0642 97.9 76 17 135/84 93 HIGH FLOW 80 NASAL CANNULA 11/21 0514 97.9 77 21 134/68 93 HIGH FLOW 30.0 NASAL CANNULA 11/21 0410 83 24 134/76 92 HIGH FLOW 30.0 NASAL CANNULA 11/21 0300 71 19 132/62 93 11/21 0200 79 20 133/56 97 HIGH FLOW 30.0 NASAL CANNULA 11/21 0100 78 14 121/65 94 11/21 0046 30.0 11/21 0005 82 14 120/62 94 11/20 2300 74 18 120/62 93 / 2203 97.9 87 18 123/63 93 HIGH FLOW 30.0 NASAL CANNULA 11/20 2118 98.1 92 22 138/71 88 HIGH FLOW 30.0 NASAL CANNULA 11/20 2012 30.0 11/20 2004 97.3 99 26 119/58 90 HIGH FLOW 35.0 NASAL CANNULA 11/20 1958 HIGH FLOW 35.0 NASAL CANNULA /14 1915 97.5 100 27 133/62 94 HIGH FLOW 35.0 NASAL CANNULA 11/20 1813 97.7 103 28 118/59 90 HIGH FLOW 35.0 NASAL CANNULA 11/20 1711 99 28 128/54 91 HIGH FLOW 35.0 NASAL CANNULA /14 1615 98.4 97 23 146/72 90 HIGH FLOW 35.0 NASAL CANNULA /14 1515 97.5 95 25 127/66 91 HIGH FLOW 35.0 NASAL CANNULA 14 1423 101 05/14 1408 35.0 05/14 1309 97.9 05/14 1200 93 22 135/66 90 HIGH FLOW NASAL CANNULA 05/14 1100 93 126/59 05/ 1000 95 25 118/55 89 HIGH FLOW 40.0 NASAL CANNULA 11/20 0830 HIGH FLOW 40.0 NASAL CANNULA 14 0825 96 31 133/70 91 HIGH FLOW 40.0 NASAL CANNULA 11/20 0811 40.0 11/20 0732 81 16 121/58 96 HIGH FLOW 40.0 NASAL CANNULA I&O 11/21 0000 11/20 1600 11/20 0800 Intake Total 830 360 657 Output Total 550 510 591 Balance 280 -150 66 General Appearance Alert, Cooperative HEENT Normal exam Lungs coarse BS bilaterally L lower lungs with somoe increase in crackles. Good air movement. Cardiovascular Regular rate and rhythm Abdomen Soft, No tenderness Extremities No edema, R AKA amputation Assessment and Plan Problem List 1. CHF (congestive heart failure) Status Chronic Onset Date Unknown Plan Patient is with CHF hx and will re check on bnp in the am tomorrow. ? increase on lasix. 2. Diabetes mellitus Status Chronic Onset Date Unknown Plan Is doing well at this time. Really working on comfort with the number of checks at this time. 3. Lung cancer Plan Has lung CA hx and ? chemo induced pneumonititis. 4. COPD (chronic obstructive pulmonary disease) Status Chronic Onset Date Unknown Plan Severe copd and low O2 5. Supraventricular tachycardia Plan Is better with higher beta meche over the weekend. 6. Pneumonitis Plan ? if improving. Plan to wean down the O2 on to 9 L max and d/c home likely on Monday.
--- NOTE | 2016-11-21 08:30 | NUR ---
Patient in bed resting at this time. Patient denies pain and nausea. Tolerating PO intake. Family at bedside. Port-a-cath patent 21cc/hr. Miller patent. Dark yellow urine noted. Patient repositioned in bed frequently. Waffle mattress to help prevent skin breakdown. Sob noted with exertion. RT will be working with patient today. Patient continues on high flow NC O2 30L 80% FIO2. No complaints at this time. Pleasant and cooperative with care. Will continue to monitor.
--- NOTE | 2016-11-21 15:41 | NUR ---
NUTRITION FOLLOW UP NOTE: Pt po intake ~10-100% range; variable. Intake varies likely 2/2 breathing issues. Case management working on d/c planning. RD to follow prn/protocol.
--- NOTE | 2016-11-21 18:30 | NUR ---
Pt pleasant and cooperative with care. Family at bedside. Pt on 35L O2 at 80%. Pt intermittently anxious with air hunger. Pt given Ativan 0.5 mg IV and Morphine 2 mg IV for air hunger. Patient given 1 tab Percocet in afternoon for 7/10 upper back/shoulder/neck pain, med effective, pain reduced to 2/10. Pt used bedpan for BM. RT in for nebulized fentanyl 25 mcg treatment which was effective. Oncologist and MD will make plan for Pt to discharge home on comfort care if patient does not improve in a few days.
--- NOTE | 2016-11-21 21:15 | CONSULTATION REPORT ---
DATE OF CONSULTATION: 11/21/2016 CHIEF COMPLAINT: 1. Hypoxemic acute respiratory failure, suspect drug-induced pneumonitis due to docetaxel HISTORY OF PRESENT ILLNESS: The patient is a very pleasant 71-year-old former smoker gentleman with underlying COPD and recurrent pulmonary squamous cell carcinoma, who about 4 years ago underwent a course of chest chemoradiotherapy, and recently presented with local recurrence in right upper lobe. Has been receiving palliative chemotherapy , including first line carboplatin/gemcitabine and subsequently second line docetaxel. The latter can cause drug-induced pneumonitis, which I suspect is the primary etiology of his current hypoxemic acute respiratory failure. The patient has been admitted to hospital for the last 2 weeks, presenting with severe exertional dyspnea. He was afebrile and has remained afebrile throughout hospital stay. He was treated for acute COPD exacerbation with empiric antibiotics, IV steroids , bronchodilators, and high flow O2. Blood culture drawn on 11/08/2016 was positive for coagulase-negative staph, but this is probably a contaminant. Procalcitonin was nondetectable on admit. PHYSICAL EXAMINATION: VITAL SIGNS: Currently, the patient is on high flow O2 at 30 L with 80% FIO2. GENERAL: He is dyspneic at rest and gets hypoxemic with minimal exertion. He is sitting up and eating his supper. He is awake, alert, and oriented x3. CARDIAC: He is tachycardic, but otherwise hemodynamically stable. LAB/IMAGING: Imaging studies: CT scan of chest, abdomen and pelvis: On 11/10/2016 showed improved left mid lung infiltrate, an interval mild decrease in solid component of the right upper lung mass. CT chest angiogram: On 11/16/2016 shows mild worsening in severe acute and chronic interstitial and alveolar changes throughout the lungs and mild mediastinal lymphadenopathy. There is no evidence of pulmonary embolus. Echocardiogram: On 11/17/2016 was a technically difficult study, but showed concentric left ventricular hypertrophy with hyperdynamic systolic function and severe pulmonary hypertension. IMPRESSION: 1. I think most likely this patient has developed a severe case of a drug- induced pneumonitis from docetaxel, especially in the context of his underlying chronic obstructive pulmonary disease and previous chest radiotherapy. We placed him on higher dose IV glucocorticoids, Solu-Medrol 100 mg b.i.d. as of 3 days ago. So far, his O2 requirement has not responded, but we will monitor over the next few days. Hopefully, if pneumonitis improves, his O2 requirement would gradually lessen and might get to a point that he could be discharged home on nasal cannula. He is also on prophylactic fluconazole for candidiasis prophylaxis. PLAN: I agree that at this point, there is no indication for empiric antibiotic therapy given that this patient already received a full course of cefuroxime, and has not had a positive culture or fever during this admission. I will follow up with Dr. Cooper over the next few days, and if the patient remains admitted throughout this week, we will come back for a followup evaluation later in the week, as well.
[2016-11-22] VITALS (7 sets, daily range): BP systolic 120–137; BP diastolic 62–74
--- NOTE | 2016-11-22 07:51 | Progress Note ---
Subjective General Patient is a 71 y.o. male with cad, chf hx, lung CA, who was admitted with copd, pneumonia. Has had a large work up and has been treated for pneumonia, copd, chf ; He had an echo that showed severe pulmonary HTN; he has been on high flow NC and been unable to tolerate wean. BNP is up some this am. Per patient and he may be doing a little better in less cough. No cp. Chronic sob. Still coughs some. Physical Exam Vital Signs / I&Os Vital Signs Date Time Temp Pulse Resp B/P Pulse O2 O2 Flow FiO2 Ox Delivery Rate 11/22 0701 97.2 80 25 133/71 92 HIGH FLOW 35.0 NASAL CANNULA 11/22 0448 78 21 129/67 90 HIGH FLOW 35.0 NASAL CANNULA 11/22 0314 35.0 11/22 0106 35.0 11/22 0014 97.5 94 29 137/67 86 HIGH FLOW 35.0 NASAL CANNULA 11/22 0003 35.0 11/21 2100 HIGH FLOW 35.0 NASAL CANNULA 11/21 2021 60 05 1957 35.0 11/21 1805 97.5 90 22 147/57 97 HIGH FLOW 35.0 NASAL CANNULA 11/21 1650 35.0 05/15 1434 80 11/21 1408 96.6 89 25 114/58 100 HIGH FLOW 35.0 NASAL CANNULA 11/21 1403 35.0 /15 1041 97.5 84 19 113/58 94 HIGH FLOW 35.0 NASAL CANNULA 11/21 0753 30.0 I&O 11/22 0000 11/21 1600 11/21 0800 Intake Total 1147 480 236 Output Total 1499 116 4753 Balance 147 -95 -824 General Appearance Alert, Cooperative HEENT Normal exam Lungs coarse BS, soft wheeze, no crackles. Cardiovascular Regular rate and rhythm Abdomen Soft, No tenderness Extremities No edema LAB Results Laboratory Tests 11/22 11/22 0450 0450 Chemistry Plasma Sodium (136 - 145 mmol/L) 144 Plasma Potassium (3.5 - 5.1 mmol/L) 4.6 Plasma Chloride (98 - 107 mmol/L) 105 CO2 (Enzymatic) (21 - 32 mmol/L) 36 BUN (7 - 18 mg/dL) 20 Creatinine (0.6 - 1.3 mg/dL) 0.6 Est GFR ( Amer) (mL/min) >60 Est GFR (Non-Af Amer) (mL/min) >60 Glucose (70 - 110 mg/dL) 152 Plasma Calcium (8.5 - 10.1 mg/dL) 8.6 B-Natriuretic Peptide (5 - 100 pg/ml) 507 Hematology WBC (4.5 - 11.5 K/uL) 15.1 RBC (4.50 - 5.90 M/uL) 4.23 Hgb (13.5 - 17.5 gm/dL) 11.4 Hct (41.0 - 53.0 %) 36.2 MCV (80 - 100 fL) 86 MCH (26 - 34 pg) 27 RDW (11.6 - 14.8 %) 19.2 Neut % (Auto) (50 - 75 %) 93.0 Lymph % (Auto) (25 - 40 %) 4.2 [place] % (Auto) (3 - 14 %) 2.7 Eos % (Auto) (0 - 4 %) 0 Baso % (Auto) (0 - 2 %) 0.1 Plt Count, EDTA (150 - 400 K/uL) 164 PUBS MCHC (31 - 37 g/dL) 32 Assessment and Plan Problem List 1. Lung cancer Plan Possible post chemo pnuemonitis. Has severe pulm HTN and VQ that shows very bad lung dz and air trapping. 2. CHF (congestive heart failure) Status Chronic Onset Date Unknown Plan Elevated BNP and increase on diuretics today; re check labs in am. 3. COPD (chronic obstructive pulmonary disease) Status Chronic Onset Date Unknown Plan Has been on high dose of steroids and O2; post treatment with abx. 4. Supraventricular tachycardia Plan stable at this time. 5. Anemia Status Resolved Onset Date Unknown Plan improved post transfusion.
--- NOTE | 2016-11-22 13:22 | NUR ---
NOTIFIED DR. QUEZADA THAT PATIENT'S URINE IS YEE WITH CLOTS. NO ORDERS RECEIVED.
--- NOTE | 2016-11-22 17:39 | NUR ---
Patient has been alert and oriented throughout shift. Oxygen sats drop with any exertion. Gave morphine and ativan as ordered. No complaints of nausea or vomiting. Will continue to monitor patient.
[2016-11-23] VITALS (7 sets, daily range): BP systolic 106–138; BP diastolic 54–72
--- NOTE | 2016-11-23 01:27 | NUR ---
[id number] woke up with coughing spell, O2 sat H 80's on 35L 75%, RR24/min, HR 90's c/o chest pain with coughing accross the chest. called RT for neb tx. Morphine 2mg Iv, Ativan 0.5mg IV, Percocet 1tab po given. calmed down after all meds given, RR 20/min, O2 sat 95% dosing off. wants head down to sleep. HR 70's NSR. Miller intact. Lungs ant clear, post LLL crackles present. neuro intact. IV kvo via Port-a-cath. Call light in reach. at the bed side. pt states "I am very tired and exausted." coherent, cooperative. cont foci on comfort, Respiratory, CV status.
--- NOTE | 2016-11-23 02:57 | NUR ---
0230 PT IS ASLEEP, o2 SAT 98-100% CALLED RT FOR TITRATING O2. DECREASED TO 70% (FROM 75% 35L). NSR 70'S. RR 20/MIN.
--- NOTE | 2016-11-23 06:00 | NUR ---
0600 noted O2 sat stayed >95% so cont titrated down 60% on 35L. pt rested and slept well since Morphine, Ativan, Percocet dose. Miller draining urine good amount. no further coughing spell over night. NSR 70's, BP stable. call light in reach, at the bedside providing care.
--- NOTE | 2016-11-23 15:47 | NUR ---
NUTRITION FOLLOW UP NOTE: PO intake ~50-100% per documentation. Rev'd meds and labs/accuchecks. Insulin and metformin in place for coverage. CCD/Cardiac diet in place as well. Per documentation working on weaning pt of high flow O2 vs hospice. Rec update current weight. Will continue to monitor nutrition indices and follow up prn/protocol.
[2016-11-24 03:25] VITALS: BP 116/65
--- NOTE | 2016-11-24 04:46 | NUR ---
PT HAS SLEPT THROUGH MOST OF THIS NIGHT. AT BEDSIDE. PT AWAKE THIS A.M., ALERT/ORIENTED X4, VSS. HI DANYELLE NC O2, TOLERATING WELL. PT BATHED, LINEN CHANGE. NO OTHER NEEDS AT THIS TIME.
--- NOTE | 2016-11-24 05:41 | DIAGNOSTIC IMAGING REPORT ---
PROCEDURE: XR CHEST 1 VIEW INDICATION: hx pneumonia TECHNIQUE: Portable AP view 05:07 a.m. COMPARISON: Chest x-ray 11/14/2016 and 11/10/2016. FINDINGS: Low lung volumes with diffuse coarse interstitial markings consistent with pulmonary fibrosis. Continued improvement in the right mid lung and left basilar superimposed infiltrates. Right apical mass is unchanged. Median sternotomy with CABG. Stable heart size. Left subclavian Port-A-Cath. No suspicious osseous lesions. IMPRESSION: 1. Continued slight improvement of the right midlung and left basilar pneumonia 2. Pulmonary fibrosis with right apical mass. 3. CABG
--- NOTE | 2016-11-24 06:44 | Progress Note ---
Subjective General 71 y.o. male admitted to the hospital for copd, pneumonia, hx of lung CA, ? chemo pneumonitis. Has had multiple CTs, CXR, and not having any improvement. Is on high flow O2 and is not able to wean. We have discused options and we plan on taking him off of O2 down to 9 liters today. Has no acute CP, has the chronic sob at this time. Physical Exam Vital Signs / I&Os Vital Signs Date Time Temp Pulse Resp B/P Pulse O2 O2 Flow FiO2 Ox Delivery Rate 11/24 0325 98.1 77 24 116/65 90 HIGH FLOW 35.0 NASAL CANNULA 11/23 2243 98.1 89 25 110/66 93 HIGH FLOW 35.0 NASAL CANNULA 11/23 2004 HIGH FLOW 35.0 NASAL CANNULA 11/23 1922 97.3 23 21 112/54 100 HIGH FLOW 35.0 NASAL CANNULA 11/23 1915 35.0 11/23 1812 98.1 93 27 123/62 100 HIGH FLOW 40.0 NASAL CANNULA 11/23 1621 35.0 11/23 1418 35.0 11/23 1411 88 11/23 1328 97.5 80 25 116/61 91 HIGH FLOW 35.0 NASAL CANNULA 11/23 1022 35.0 11/23 1005 96.3 76 18 138/72 98 HIGH FLOW 35.0 NASAL CANNULA 11/23 0900 HIGH DANYELLE 100 02 I&O 11/24 0000 11/23 1600 11/23 0800 Intake Total 880 720 706 Output Total 700 1375 1950 Balance 180 -655 -1244 General Appearance Alert, Cooperative HEENT Normal exam Lungs coarse BS with good air movement. Cardiovascular Regular rate and rhythm Abdomen Soft, No tenderness Extremities No edema, AKA LAB Results Laboratory Tests 11/24 11/24 0430 0430 Chemistry Plasma Sodium (136 - 145 mmol/L) 141 Plasma Potassium (3.5 - 5.1 mmol/L) 4.4 Plasma Chloride (98 - 107 mmol/L) 100 CO2 (Enzymatic) (21 - 32 mmol/L) 37 BUN (7 - 18 mg/dL) 21 Creatinine (0.6 - 1.3 mg/dL) 0.6 Est GFR ( Amer) (mL/min) >60 Est GFR (Non-Af Amer) (mL/min) >60 Glucose (70 - 110 mg/dL) 242 Plasma Calcium (8.5 - 10.1 mg/dL) 8.4 B-Natriuretic Peptide (5 - 100 pg/ml) 254 Hematology WBC (4.5 - 11.5 K/uL) 15.3 RBC (4.50 - 5.90 M/uL) 4.56 Hgb (13.5 - 17.5 gm/dL) 12.3 Hct (41.0 - 53.0 %) 39.3 MCV (80 - 100 fL) 86 MCH (26 - 34 pg) 27 RDW (11.6 - 14.8 %) 19.6 Neut % (Auto) (50 - 75 %) 94.1 Lymph % (Auto) (25 - 40 %) 3.8 Spalding % (Auto) (3 - 14 %) 2.1 Eos % (Auto) (0 - 4 %) 0 Baso % (Auto) (0 - 2 %) 0 Plt Count, EDTA (150 - 400 K/uL) 162 PUBS MCHC (31 - 37 g/dL) 31 Assessment and Plan Problem List 1. CHF (congestive heart failure) Status Chronic Onset Date Unknown Plan Patient is stable good BNP this am. Has wean on O2 today and likely will fail with air hunger then with comfort measures pass. If still alive in 2 days then anticipate d/c to home on Monday. 2. Pneumonitis Plan Patient is with pneumonitis that is showing no acute issues cxr a little better, clniically the same discussed with Dr. Beverly and family and they feel that it is time for wean down to comfort. 3. Diabetes mellitus Status Chronic Onset Date Unknown Plan stable 4. COPD (chronic obstructive pulmonary disease) Status Chronic Onset Date Unknown Plan Has copd that is with severe lung dz and can't get off high flow O2 5. Lung cancer Plan STable 6. Pneumonia Status Acute Onset Date 11/08/16 Plan Post adequate treatment and CXR improved
[2016-11-24 09:20] VITALS: BP 103/59
[2016-11-24 10:17] VITALS: BP 111/53
--- NOTE | 2016-11-24 10:21 | NUR ---
Pt in bed, at bedside. Pt pleasant and drowsy but responsive to care. Pt states generalized pain is at a 3/10 for upper back and shoulder pain. Pt able to take PO meds and eat some breakfast, assisted pt with meal. Pt pointed out sore area on right nostril from his glasses - padding placed on area. Electroencephalograph Technician visited with family. Miller draining well. Will continue to monitor.
[2016-11-24 13:08] VITALS: BP 115/62
--- NOTE | 2016-11-24 16:01 | NUR ---
CatheterOxygen Pt resting in bed, at bedside. Pt asked how often we changed catheters. Pt stated catheter was hurting / burning at tip and "down inside". Secured Miller to patient leg with Coban wrap since tape will not hold due to patients moist skin. Called MD. MD inquired about O2 status. MD ordered High flow O2 to be switched to Oxymask at 9L. RT made the switch. Will continue to monitor.
--- NOTE | 2016-11-24 17:41 | NUR ---
Pt resting at this time. Pt asked "why am I so tired?" Pt drowsy but comfortable after Morphine, Percocet and Attivan effective. at bedside most of the day. Pt able to take a few bites of dinner. RT switched High Flow O2 to Oxymask at 9L per MD this afternoon. Pt O2 SAT in low to mid 90s with O2 monitor on forehead. Pt complained earlier in the day of pain with urinary catheter. MD informed. No complaints of pain at this time. Will continue to monitor.
[2016-11-24 18:13] VITALS: BP 115/69
--- NOTE | 2016-11-24 20:48 | NUR ---
AT 1930, WHEN I CAME ON SHIFT, PT WAS TACHYPNIC AND BREATHING WAS SHALLOW AND LABORED. 2MG IV MORPHINE ANS 0.5MG ATIVAN IV WAS GIVEN FOR AIR HUNGAR AND DISCOMFORT. PT WAS WEARING AN OXYMASK AT 11L UNTIL MEDICATION WAS GIVEN AND PT BECAME LESS DISTRESSED. PT IS NO LONGER GRIMACING AND APPEARS RELAXED. O2 SAT 96%. O2 TITRATED DOWN TO 10L. O2 SAT REMAINED AT 93%. WILL CONTINUE TO MONITOR. PT IS SEDATED AT THIS TIME. PT'S IS AT THE BEDSIDE AND HER FRIEND WILL BE STAYING WITH HER FOR SUPPORT.
[2016-11-24 22:33] VITALS: BP 122/56
[2016-11-25 02:22] VITALS: BP 120/66
[2016-11-25 06:20] VITALS: BP 124/69
--- NOTE | 2016-11-25 06:32 | NUR ---
0600 SHIFT SUMMARY Drowsy most of the times due to comfort care goal with Morphine and Ativan IV. but arise easily and appropriate, cooperatvie, and coherent. at the bedside at all times. vss. afebrile. O2 sat >94% on 10L OxyMask. No respiratory distress noted over night. pt requested for Morpnine IV PRN dose at times which is effective for comfort. IV port-a-cath intact with IVF KVO. vss, NSR 70's. Uneventful noc. plan for discharge home with comfort care if pt tolerate with oxygen.
--- NOTE | 2016-11-25 09:56 | NUR ---
PT C/0 CHEST PAIN AND ANXIETY PT WAS ADMINISTERED 0.5 MG ATIVAN ALONG WITH MORPHINE 2 MG IV. VOICED HER CONCERNS THAT DR. LORENZANA WAS NOT HERE TO SEE THE PT. DR. Lorenzana was notified and she stated that she wanted everything in place before she came over. The message from Dr. Lorenzana was conveyed to the pt and his . The became upset and threw in head in her hands " we are not ready to go home, I then asked what we needed to do to make this happen. appeared anxious and said well meed for home health to come to our house to assess wjat we need including oxygen and supplies. I went to Mariza in dc planning and told her the concerns of the family and benounce to me the has not been on 9 l via oxymask for 24 hours and is still on 9.5. I will need to convey this to DR. LORENZANA
[2016-11-25 11:30] VITALS: BP 104/56
[2016-11-25 14:33] VITALS: BP 115/61
[2016-11-25 18:27] VITALS: BP 105/52
--- NOTE | 2016-11-25 19:19 | Progress Note ---
Subjective General Patient is doing ok today. No nausea/vomitting/diarrhea/constipation. No abd pain. No SOB. Physical Exam Vital Signs / I&Os Vital Signs Date Time Temp Pulse Resp B/P Pulse O2 O2 Flow FiO2 Ox Delivery Rate 11/25 1843 10.0 11/25 1827 35.6 88 20 105/52 85 Mask 9.0 11/25 1437 92 11/25 1433 36.6 83 22 115/61 90 Mask 9.0 11/25 1130 88 19 104/56 92 Mask 10.0 11/25 0900 9.5 11/25 0803 10.0 11/25 0620 36.4 83 19 124/69 95 Mask 9.5 11/25 0222 36.7 73 18 120/66 95 Mask 9.5 11/25 0000 Mask 9.5 11/24 2348 Mask 10.0 11/24 2233 36.8 72 18 122/56 96 Mask 10.0 I&O 11/25 0000 11/24 1600 11/24 0800 Intake Total 398 220 198 Output Total 1040 1200 1200 Balance -642 -980 -1002 General Appearance Alert, Cooperative, No acute distress Lungs Diminished throughout. Cardiovascular Regular rate and rhythm, Normal S1 and S2, No murmurs, gallops, rubs Abdomen Normal bowel sounds, Soft, No tenderness Extremities 1+ edema in LLE. Assessment and Plan Problem List 1. Lung cancer Plan End-stage. No further treatments available per patient. 2. Pneumonitis Plan No improvement with steroids. Patient has made decision to change to comfort cares only and will meet with hospice in am. 3. COPD (chronic obstructive pulmonary disease) Status Chronic Onset Date Unknown
[2016-11-25] MEDS ORDERED: PANTOPRAZOLE SO40 MG PO (19:26)
[2016-11-25] MEDS ORDERED: DOCUSATE SODIU250 MG PO (19:26)
[2016-11-25] MEDS ORDERED: [UNRECOGNIZED DRUG - OTHER] (19:27)
[2016-11-25] MEDS ORDERED: TRAZODONE HCL50 MG PO (19:31)
[2016-11-25] MEDS ORDERED: MIRAPEX0.25 MG PO (19:31)
[2016-11-25] MEDS ORDERED: GABAPENTIN300 MG PO (19:32)
[2016-11-25] MEDS ORDERED: CYMBALTA30 MG PO (19:33)
[2016-11-25] MEDS ORDERED: TOPROL XL50 MG PO (19:34)
[2016-11-25] MEDS ORDERED: LEVALBUTEROL IN (19:35)
[2016-11-25] MEDS ORDERED: IPRATROPIUM BROMIDE/ IN (19:35)
[2016-11-25] MEDS ORDERED: FUROSEMIDE20 MG PO ×2 (19:36→19:46)
--- NOTE | 2016-11-25 19:40 | Provider's Discharge Care Plan ---
Problem, Goal, Plan Problem List 1. Lung cancer Goals: Keep you comfortable. Instructions: Follow up as directed, Take meds as directed
--- NOTE | 2016-11-25 19:40 | Provider's Discharge Care Plan ---
Problem, Goal, Plan Problem List 1. Lung cancer Goals: Keep you comfortable. Instructions: Follow up as directed, Take meds as directed
[2016-11-25] MEDS ORDERED: LORAZEPAM1 MG SL (19:52)
[2016-11-25] MEDS ORDERED: PREDNISONE20 MG PO (19:52)
[2016-11-25] MEDS ORDERED: MORPHINE SUL20 MG/ML SL (19:52)
--- NOTE | 2016-11-25 20:43 | NUR ---
PT IS MAINTAINING AT 9 L VIA OXYMASK BUT HAS PERIODS WHERE HE WILL START TO COUGH AND TURN CYANOTIC AND COUGH UP SPUTUM. AND PT ARE AWARE THAT TOMORROW DC TO HOME WITH HOSPICE AND OXYGEN WILL BE ARRANGED. DR. LORENZANA IS PLANNING TO RETURN TO MAKE THE ARRANGEMENTS FOR DC INCLUDING MEDICATIONS.
--- NOTE | 2016-11-26 00:56 | NUR ---
MET WITH PT TO DISCUSS COMFORT CARE PLAN AND GOING HOME ON HOSPICE IN THE MORNING. PT VERBALIZED HIS UNDERSTANDING AND DECIDED WITH THE DOCTOR WHAT MEDS HE WILL NO LONGER BE TAKING. GOAL IS COMFORT AND NO "PROLONGING THE END". PT IS HAVING A VERY DIFFICULT TIME ACCEPTING THE PLAN- SHE IS STILL IN DENIAL THAT THE PATIENT'S SITUATION IS TERMINAL. PT'S HAS BEEN COUNSELED BY MUCH OF THE STAFF SINCE THE PT WAS ADMITTED. PT HAS VERBALIZED HE IS READY TO AND IS TIRED. HE JUST WANTS TO BE SEDATED. PLAN IS TO TITRATE DOWN THE O2 AND MEDICATE FOR COMFORT. DISCONTINUED TELE.
[2016-11-26 07:29] VITALS: BP 113/59
--- NOTE | 2016-11-26 07:36 | Provider's Discharge Care Plan ---
Problem, Goal, Plan Problem List 1. Pneumonitis Goals: Comfort care Instructions: Follow up as needed (Hospice), Hospice 2. Lung cancer Goals: Comfort care Instructions: Hospice care and prayer
--- NOTE | 2016-11-26 08:12 | DISCHARGE SUMMARY ---
ADMIT DATE: 11/08/2016 DISCHARGE DATE: 11/26/2016 ADMITTING DIAGNOSIS: 1. Pneumonia. 2. Lung cancer. 3. Congestive heart failure. 4. Anemia. 5. Diabetes mellitus. 6. Chronic obstructive pulmonary disease. DISCHARGE DIAGNOSES: 1. Pneumonia. 2. Lung cancer. 3. Congestive heart failure. 4. Anemia. 5. Diabetes mellitus. 6. Chronic obstructive pulmonary disease. HOSPITAL COURSE: A 71-year-old male with history of lung cancer, coronary artery disease, congestive heart failure, COPD, prostate cancer, who presented with increasing shortness of breath. The patient was diagnosed with pneumonia, felt to be a pneumonitis secondary to chemotherapy. He was treated with IV antibiotics. Lung cancer was noted to be refractory to treatment by Oncology. Steroid treatment was suggested and undertaken and CHF was managed with fluid restriction, diuretics and monitoring. The patient was noted to be anemic, but not actively bleeding during the hospital stay. Diabetes was controlled with sliding scale insulin as needed. COPD treated with nebulized treatments and IV steroids and oxygen. Overall, the patient's course did not improve. In consultation with Oncology, the patient was advised of the terminal nature of his disease and patient chose hospice care at home. This resulted in a grieving process with patient and , hospice was arranged and on the day of discharge, the patient was transferred home under hospice care. DISCHARGE INSTRUCTIONS/MEDICATIONS: Disposition: Home on hospice care. Special instructions: Follow up as per hospice with comfort care measures.
--- NOTE | 2016-11-26 09:41 | NUR ---
AT BEDSIDE. DISCHARGE INSTRUCTIONS AND RX GIVEN TO . LEFT AT 0915 FOR HOME TO MEET FOR O2 SETUP. PT SLEEPING BUT ABLE TO AROUSE AND NOD HEAD APPROPRIATELY. MORPHINE GIVEN TO PT PRIOR TO TRANSFER TO HOME BY AMBULANCE. HOSPICE TO BE AT HOUSE AT 0930. PRADEEP CATH DE-ACCESSSED AND FLUSHED WITH HEPARIN PER PROTOCOL. PT DISCHARGED TO HOME AT 0935.
== END 2016-11-26 09:35 | disposition hospice, home (50) | DRG 205 ==
LOC: ED SRH 17:17 → TRANS SRH 19:20 → ACUTE2 SRH 20:10 → CC SRH 20:10 → ACUTE2 SRH 20:10 → CC SRH 11-10 18:45
PROVIDERS: ADMIT Family Medicine
PROC: 30233N1 Transfusion of Nonautologous Red Blood Cells into Peripheral Vein, Percutaneous Approach (ICD-10-PCS; principal; 2016-11-15)
DX: J70.2 Acute drug-induced interstitial lung disorders (principal); T45.1X5A Adverse effect of antineoplastic and immunosuppressive drugs, initial encounter; J96.01 Acute respiratory failure with hypoxia; C34.11 Malignant neoplasm of upper lobe, right bronchus or lung; J44.1 Chronic obstructive pulmonary disease with (acute) exacerbation; I47.1 Supraventricular tachycardia; D70.1 Agranulocytosis secondary to cancer chemotherapy; D64.81 Anemia due to antineoplastic chemotherapy; E11.9 Type 2 diabetes mellitus without complications; R79.89 Other specified abnormal findings of blood chemistry; I11.0 Hypertensive heart disease with heart failure; I50.9 Heart failure, unspecified; Z95.828 Presence of other vascular implants and grafts; K59.00 Constipation, unspecified; I27.2 Other secondary pulmonary hypertension; I25.10 Atherosclerotic heart disease of native coronary artery without angina pectoris; Z99.81 Dependence on supplemental oxygen; Z79.84 Long term (current) use of oral hypoglycemic drugs; Z95.1 Presence of aortocoronary bypass graft; Z89.611 Acquired absence of right leg above knee